=== PATIENT | male | born 1940 | race Caucasian/White ===

== ENCOUNTER 2018-01-29 17:52 | Inpatient (IN) ==
--- NOTE | 2018-01-29 18:26 | Emergency Department Note ---
Disposition Clinical Impression: Weakness, Fecal impaction in rectum Pneumonia Qualifiers: Pneumonia type: due to unspecified organism Laterality: unspecified laterality Lung location: unspecified part of lung Qualified Code(s): J18.9 - Pneumonia, unspecified organism Disposition: Admitted As Inpatient Condition: Good General Adult HPI - General Chief complaint: ED Abdominal Pain Stated complaint: Lathargic Time Seen by Provider: 01/29/18 18:17 Source: patient, EMS Nursing Notes Reviewed: Yes Vital Signs Reviewed: Yes - History of Present Illness HPI Narrative: 77-year-old male presents to the emergency department from nursing facility with concerns for feeling lethargic. Patient states that he is been more tired lately. Reports that he had some cough and sputum production. Also reports some abdominal pain. Patient has abdominal pain is mild in nature and right- sided. Describes it as achy pain. Denies any nausea, vomiting, dysuria, urinary frequency, urgency. Patient denies any fevers, chills, chest pain, pressure, tightness. Pain Scale: 0 - Related Data Home Medications Medication Instructions Recorded Confirmed Albuterol Sulfate [Ventolin Hfa] 2 puff IH Q6H PRN 01/29/18 01/29/18 Amlodipine Besylate 5 mg PO QAM 01/29/18 01/29/18 Aspirin [Lo-Dose Aspirin EC] 81 mg PO DAILY 01/29/18 01/29/18 Fluticasone/Vilanterol [Breo 2 puff IH QAM 01/29/18 01/29/18 Ellipta 200-25 Mcg INH] Furosemide [Lasix] 20 mg PO QAM 01/29/18 01/29/18 Insulin Glargine [Lantus] 3 unit SQ HS 01/29/18 01/29/18 Ipratropium/Albuterol Sulfate 3 ml IH Q4H 01/29/18 01/29/18 [Iprat-Albut 0.5-3(2.5) mg/3 ml] Metoprolol [Lopressor] 25 mg PO BID 01/29/18 01/29/18 Mycophenolate Mofetil [Cellcept] 500 mg PO BID 01/29/18 01/29/18 Oxybutynin Chloride [Ditropan Xl] 10 mg PO QAM 01/29/18 01/29/18 Pravastatin Sodium [Pravachol] 40 mg PO DAILY 01/29/18 01/29/18 Ranitidine HCl [Acid Paint Prep Technician] 150 mg PO BID 01/29/18 01/29/18 Tramadol HCl [Ultram] 50 mg PO Q12H PRN 01/29/18 01/29/18 Allergies Allergy/AdvReac Type Severity Reaction Status Date / Time guaifenesin [From Mucinex] Allergy Confusion Verified 08/27/15 14:05 All systems ED: reviewed and negative except as stated. Review of Systems: As Per HPI Constitutional: Denies: fever Cardiovascular: Denies: chest pain Respiratory: Reports: cough, sputum production Gastrointestinal: Reports: abdominal pain. Denies: nausea, vomiting Genitourinary: Denies: urgency, dysuria, frequency Musculoskeletal: Denies: back pain Integumentary: Denies: rash Neurological: Denies: headache Past Medical History - Past Medical History Medical history: Reports: arthritis, cancer, COPD, diabetes, GERD, hypertension, peripheral artery disease, renal disease Psychiatric history: Reports: anxiety, depression - Social History Smoking Status: Former smoker Smokeless Tobacco Status: No Alcohol use: Reports: none Drug use: Reports: none Physical Exam - General General appearance: alert, in no apparent distress - Head Head exam: normocephalic - Eye Eye exam: Present: EOMI - ENT ENT exam: mucous membranes moist - Neck Neck exam: Present: trachea midline - Chest Chest inspection: Present: symmetric chest wall rise - Respiratory Respiratory exam: Present: normal lung sounds bilaterally. Absent: respiratory distress, accessory muscle use - Cardiovascular Cardiovascular exam: Present: regular rate, normal rhythm, normal heart sounds - Abdominal Exam Abdominal exam: Present: soft, tenderness. Absent: distention, guarding, rebound, rigidity Abdominal tenderness: Present: RUQ, RLQ, mild - Rectal Exam Editor Continuity And Script present during exam: Yes Rectal exam: Present: normal inspection, heme (-) stool, other (Patient had release of moderate quantity of stool upon disimpaction.). Absent: black stool, bloody stool, hemorrhoids, mass - Extremities Exam Extremities exam: Present: full ROM, normal capillary refill - Back Exam Back exam: Present: full ROM - Neurological Exam Neurological exam: Present: alert, oriented X3 - Psychiatric Psychiatric exam: Present: normal affect, normal mood - Skin Skin exam: Present: warm, dry, intact, normal color. Absent: rash Course Vital Signs Temperature 99.4 F 01/29/18 17:55 Pulse Rate 82 01/29/18 17:55 Respiratory Rate 20 01/29/18 17:55 Blood Pressure 123/75 01/29/18 17:55 O2 Sat by Pulse Oximetry 100 01/29/18 17:55 Temperature 98.0 F 01/30/18 06:37 Pulse Rate 78 01/30/18 06:37 Respiratory Rate 20 01/30/18 06:37 Blood Pressure 142/71 01/30/18 06:37 O2 Sat by Pulse Oximetry 97 01/30/18 06:37 Oxygen Delivery Oxygen Delivery Nasal Cannula Medical Decision Making - MDM Narrative Medical decision making narrative: 69-year-old male presents emergency Department concern for weakness, feeling well, cough, sputum production, right-sided abdominal pain. Patient was stable not in acute distress. Patient's white count was not elevated. He was afeb rile. Hemoglobin was 8.6. He does have history of anemia, we did obtain a Hemoccult which was heme negative. CT scanning of the abdomen and pelvis revealed concern for rectal fecal impaction. On rectal exam, stool was released from the rectal vault upon disimpaction. It was not melenic or red. Hemoccult was negative. Patient has hemoglobin of 8.6, was 9.4 two years ago. There was concern for increasing size of an abdominal aortic aneurysm. Also to note, there was concern for Maxim obstruction as there is hypertrophy of the bladder wall. We did place a Dickson catheter to help relieve the patient. It was 3.8 cm, and is now 4.3 cm after 4 years. I spoke with Dr. Herrera, who stated that this can be followed up on an outpatient basis and that he did not need to be consulted on the floor for. We are also obtain a head CT. Did not reveal any evidence of intracranial abnormality. Chest CT revealed loculated right pleural disease as well as left lower lobe airspace disease. Patient was given vancomycin, Zosyn, Levaquin for pneumonia has had these chest CT findings as well as cough and sputum production. Admitted to the hospitalist for health care associated pneumonia. Patient hemodynamically stable not in acute distress. Chest X-Ray 01/29/18 18:24 IMPRESSION: Volume loss and increased opacity within the right lower hemithorax. Again, that represents some combination of atelectasis, airspace disease, and pleural fluid. Consider further evaluation with chest CT. D/ / Jimbo Fry MD / Jimbo Fry MD Interpreting Provider: Jimbo Fry MD Abdomen/Pelvis CT 01/29/18 18:25 IMPRESSION: Rectal fecal impaction. Cholelithiasis with multiple small calcified gallstones. Left greater than right bilateral hydronephrosis and hydroureter with no evidence of an obstructing renal calculus. The wall of the urinary bladder appears mildly irregularly thickened. Findings suggest outlet obstruction with hypertrophy of the bladder wall. Correlation with cystoscopy would be helpful. Right basilar parenchymal disease with volume loss. Right pleural disease appears loculated. Left lower lobe airspace disease may represent pneumonia and/or atelectasis. Small left pleural effusion. Calcific coronary artery disease. RECOMMENDATIONS: 4.3 cm AAA Recommend vascular consultation and annual follow-up. Reference: J Vasc Surg 2009 Nov;50(4 Suppl):S2-49. D/ / Louie Reynolds MD / Louie Reynolds MD Interpreting Provider: Louie Reynolds MD Head CT 01/29/18 18:25 IMPRESSION: No acute intracranial abnormality. Generalized atrophy and [id number] chronic small vessel ischemic white matter disease. D/ / Louie Reynolds MD / Louie Reynolds MD Interpreting Provider: Louie Reynolds MD Chest CT 01/29/18 19:33 IMPRESSION: 1. Small bilateral pleural effusion and partial atelectasis of the lower lungs. 2. Nonspecific mildly enlarged lymph nodes in the anterior mediastinum. 3. Ascending thoracic aorta is mildly aneurysmal and measures 4.5 cm in diameter. 4. Pulmonary emphysema D/ / Quintin Meanrd MD / Quintin Menard MD Interpreting Provider: Quintin Menard MD - Lab Data Result diagrams: 01/29/18 18:36 01/29/18 18:36 Lab Results 01/29/18 01/29/18 01/29/18 Range/Units 18:36 18:36 18:36 WBC 8.3 (4.3-11.1) K/mcL RBC 3.05 L (4.19-5.50) M/mcL Hgb 8.6 L (12.9-16.9) g/dL Hct 28.3 L (37.5-50.1) % MCV 92.8 (83.0-100.0) fL MCH 28.2 (28.0-33.3) pg MCHC 30.4 L (31.6-35.5) g/dL RDW 14.9 H (11.5-14.5) % Plt Count 424 H (140-400) K/mcL MPV 9.3 L (9.4-12.4) fL Immature Gran % 0.8 (0-4) % Seg Neutrophils % 63.9 % Lymphocytes % 14.8 % Monocytes % 9.9 % Eosinophils % 9.8 % Basophils % 0.8 % Neutrophils # 5.3 (1.6-8.9) K/mcL Lymphocytes # 1.2 (0.6-4.6) K/mcL Monocytes # 0.8 (0.0-1.3) K/mcL Eosinophils # 0.8 H (0.0-0.6) K/mcL Basophils # 0.1 (0.0-0.2) K/mcL Sodium 137 (136-145) mEq/L Potassium 4.4 (3.5-5.1) mEq/L Chloride 101 (98-107) mEq/L Carbon Dioxide 28 (23-29) mEq/L BUN 41 H (8-23) mg/dL Creatinine 1.37 H (0.70-1.30) mg/dL Est GFR ( Amer) > 60 (> 60) Est GFR (Non-Af Amer) 50 L (> 60) BUN/Creatinine Ratio 30 H (6-26) Glucose 108 H (70-105) mg/dL Calculated Osmolality 295 (280-300) Calcium 8.8 (8.6-10.3) mg/dL Troponin I (< 0.04) ng/mL B-Natriuretic Peptide 309 H (Less than 100) pg/mL TSH (0.340-5.600) mcIU/mL Urine Color (Yellow) Urine Clarity (Clear) Urine pH (5.0-8.0) pH Units Ur Specific Ellsworth (1.010-1.025) Urine Protein (Neg-Trace) mg/dL Urine Glucose (UA) (Normal) mg/dL Urine Ketones (Negative) mg/dL Urine Blood (Negative) Urine Nitrite (Negative) Urine Bilirubin (Negative) Urine Urobilinogen (Normal) mg/dL Ur Leukocyte Esterase (Negative) Urine Microscopic RBC (0-3) per hpf Urine Microscopic WBC (0-3) per hpf Ur Squamous Epith Cells (None-Few) per lpf Urine Bacteria (None-Few) per hpf Hyaline Casts (None-Few) per lpf Ur Culture Indicated? (NO) Stool Occult Bld Scrn (Negative) 01/29/18 01/29/18 01/29/18 Range/Units 18:36 20:18 21:13 WBC (4.3-11.1) K/mcL RBC (4.19-5.50) M/mcL Hgb (12.9-16.9) g/dL Hct (37.5-50.1) % MCV (83.0-100.0) fL MCH (28.0-33.3) pg MCHC (31.6-35.5) g/dL RDW (11.5-14.5) % Plt Count (140-400) K/mcL MPV (9.4-12.4) fL Immature Gran % (0-4) % Seg Neutrophils % % Lymphocytes % % Monocytes % % Eosinophils % % Basophils % % Neutrophils # (1.6-8.9) K/mcL Lymphocytes # (0.6-4.6) K/mcL Monocytes # (0.0-1.3) K/mcL Eosinophils # (0.0-0.6) K/mcL Basophils # (0.0-0.2) K/mcL Sodium (136-145) mEq/L Potassium (3.5-5.1) mEq/L Chloride (98-107) mEq/L Carbon Dioxide (23-29) mEq/L BUN (8-23) mg/dL Creatinine (0.70-1.30) mg/dL Est GFR ( Amer) (> 60) Est GFR (Non-Af Amer) (> 60) BUN/Creatinine Ratio (6-26) Glucose (70-105) mg/dL Calculated Osmolality (280-300) Calcium (8.6-10.3) mg/dL Troponin I < 0.03 (< 0.04) ng/mL B-Natriuretic Peptide (Less than 100) pg/mL TSH 5.263 (0.340-5.600) mcIU/mL Urine Color Yellow (Yellow) Urine Clarity Turbid A (Clear) Urine pH 5.0 (5.0-8.0) pH Units Ur Specific Ellsworth 1.015 (1.010-1.025) Urine Protein 100 H (Neg-Trace) mg/dL Urine Glucose (UA) Normal (Normal) mg/dL Urine Ketones Negative (Negative) mg/dL Urine Blood Trace H (Negative) Urine Nitrite Negative (Negative) Urine Bilirubin Negative (Negative) Urine Urobilinogen Normal (Normal) mg/dL Ur Leukocyte Esterase Negative (Negative) Urine Microscopic RBC 3-5 H (0-3) per hpf Urine Microscopic WBC 0-3 (0-3) per hpf Ur Squamous Epith Cells Many H (None-Few) per lpf Urine Bacteria None Seen (None-Few) per hpf Hyaline Casts Few (None-Few) per lpf Ur Culture Indicated? NO (NO) Stool Occult Bld Scrn Negative (Negative) - EKG Data EKG #1 EKG attestation: Yes I reviewed and interpreted this EKG. EKG results narrative: 18:35 Heart rate 76 bpm, VT 165 ms, QRS duration 107 ms, QT 400 ms, Sinus rhythm with ventricular rate of 76 beats for minute. No ischemic ST changes on this EKG. Attestation Statement - Attestation Attestation: I, Mor Antonio, examined this patient and my medical decision-making was reviewed with the DOWELER/PA/Advanced Practice Nurse/Resident Physician. I agree with the documented findings, disposition and treatment plan as described except to the extent set forth below. 77-year-old male presents emergency Department with concerns of confusion, lethargy. He had complained of abdominal pain as well emergency department. Patient also complains of having cough productive of yellow sputum which is been getting worse over the past couple days. He denies vomiting, recent trauma, changes in his medications. CT of his chest shows possible pneumonia. CT of his abdomen shows AAA of 4.3 cm which is larger than his previous aortic aneurysm. Resident spoke with the vascular surgeon, Sharon, who is aware of the patient's case and presentation. Patient had a bowel movement in the emergency department. Patient will be admitted to hospitalist for further care and evaluation.
[2018-01-29 19:02] LABS: Basophils # 0.1 K/mcL (0.0-0.2); Basophils % 0.8 %; Eosinophils # 0.8 K/mcL (0.0-0.6); Eosinophils % 9.8 %; Hematocrit 28.3 % (37.5-50.1); Hemoglobin 8.6 g/dL (12.9-16.9); Immature Granulocytes % 0.8 % (0-4); Lymphocytes # 1.2 K/mcL (0.6-4.6); Lymphocytes % 14.8 %; Mean Corpuscular HGB Conc 30.4 g/dL (31.6-35.5); Mean Corpuscular Hemoglobin 28.2 pg (28.0-33.3); Mean Corpuscular Volume 92.8 fL (83.0-100.0); Mean Platelet Volume 9.3 fL (9.4-12.4); Monocytes # 0.8 K/mcL (0.0-1.3); Monocytes % 9.9 %; Neutrophils # 5.3 K/mcL (1.6-8.9); Platelet Count 424 K/mcL (140-400); Red Blood Count 3.05 M/mcL (4.19-5.50); Red Cell Distribution Width 14.9 % (11.5-14.5); Segmented Neutrophils % 63.9 %
[2018-01-29 19:21] LABS: Troponin I < 0.03 ng/mL (< 0.04)
[2018-01-29 19:22] LABS: BUN/Creatinine Ratio 30 (6-26); Blood Urea Nitrogen 41 mg/dL (8-23); Calcium 8.8 mg/dL (8.6-10.3); Carbon Dioxide 28 mEq/L (23-29); Chloride 101 mEq/L (98-107); Glucose 108 mg/dL (70-105); Osmolality,Calculated 295 (280-300); Potassium 4.4 mEq/L (3.5-5.1); Sodium 137 mEq/L (136-145); eGFR For Non-African Americans 50 (> 60)
[2018-01-29 19:35] LABS: Thyroid Stimulating Hormone 5.263 mcIU/mL (0.340-5.600)
[2018-01-29 20:33] LABS: Bilirubin,Urine Negative (Negative); Blood,Urine Trace (Negative); Clarity,Urine Turbid (Clear); Color,Urine Yellow (Yellow); Glucose,Urine (UA) Normal (Normal); Ketones,Urine Negative (Negative); Leukocyte Esterase,Urine Negative (Negative); Nitrite,Urine Negative (Negative); Protein,Urine 100 mg/dL (Neg-Trace); Specific Gravity,Urine 1.015 (1.010-1.025); Urobilinogen,Urine Normal (Normal)
[2018-01-29 20:37] LABS: Bacteria,Urine None Seen per hpf (None-Few); Hyaline Casts,Urine Few per lpf (None-Few); Squamous Epithelial Cell,Urine Many per lpf (None-Few); WBC,Urine 0-3 per hpf (0-3)
[2018-01-29] MEDS ORDERED: Piperacillin/Tazobactam 3.375 GM in Water for inj. (sterile) 20 ML 20 ML IVP ONE (21:53)
[2018-01-29] MEDS ORDERED: Azithromycin 500 MG in D5% in Water 250 ML IVPB STA (22:17)
[2018-01-30] MEDS ORDERED: Ipratropium/Albuterol Neb 3 ML ONE (00:30)
[2018-01-30] MEDS: Ipratropium/Albuterol Neb 3 ML IH PRN ×4 (00:38→19:51)
[2018-01-30] MEDS ORDERED: Acetaminophen 325 MG TABLET PO PRN (09:30)
[2018-01-30] MEDS ORDERED: Naloxone 0.4 MG/ML INJ IVP PRN (09:30)
[2018-01-30] MEDS ORDERED: Dextrose Gel 15 GM/37.5 ML TUBE PO PRN ×2 (09:37)
[2018-01-30] MEDS ORDERED: *HR* Dextrose 50 % in Water (Syg) 50 ML SYRINGE IVP PRN (09:37)
[2018-01-30] MEDS ORDERED: D5% in Water 1,000 ML IVC PRN (09:37)
--- NOTE | 2018-01-30 09:53 | Internal Med History&Physical ---
Date of Encounter: 01/30/18 Time of Encounter: 08:00 Internal Medicine - H&P: HPI Chief complaint: Abdominal pain Admitted From: Home Plans for Post Hospital Care: Home History of present illness: Mr. Munoz is a 77 year old male presented to ER for abdominal pain. Past medical history is significant for diabetes, hypertension, lung cancer S/P right lobectomy, S/P appendectomy and partial bowel resection. Patient complaint the pain located on right upper quadrant and right lower quadrant started from yesterday. Patient denies fever, chills, nausea, vomiting. Patient can pass gas and had bowel movement yesterday evening. Patient also complaining chronic cough for about to 2 weeks with whitish to yellowish sputum. Patient denies shortness of breath, chest pain, runny nose, or sore throat. In the emergency room, CT abdominal has been done, no acute finding, but suspect pneumonia. Patient has recent pneumonia 3 weeks ago, for which he was treated in [facility]. Patient denies worsening cough or shortness of breath. Patient has bilateral lower extremity skin redness, warmth, tenderness for several weeks. Past Med Surg Social Fam HX - Past Medical History Medical history: arthritis, cancer, COPD, diabetes, GERD, hypertension, peripheral artery disease, renal disease Additional medical history: Iron Defficeincy Anemia. Hx Lung CA. Restless Leg Syndrome Psychiatric history: anxiety, depression - Past Surgical History Additional surgical history: Right lobectomy - Social History Smoking Status: Former smoker Smokeless Tobacco Status: No Alcohol use: none Drug use: none - Family History Mother History Unknown: Yes Internal Medicine - H&P: Meds Albuterol Sulfate [Ventolin Hfa] 2 puff IH Q6H PRN 01/29/18 [History] Amlodipine Besylate 5 mg PO QAM 01/29/18 [History] Aspirin [Lo-Dose Aspirin EC] 81 mg PO DAILY 01/29/18 [History] Fluticasone/Vilanterol [Breo Ellipta 200-25 Mcg INH] 2 puff IH QAM 01/29/18 [History] Furosemide [Lasix] 20 mg PO QAM 01/29/18 [History] Insulin Glargine [Lantus] 3 unit SQ HS 01/29/18 [History] Ipratropium/Albuterol Sulfate [Iprat-Albut 0.5-3(2.5) mg/3 ml] 3 ml IH Q4H 01/29/18 [History] Metoprolol [Lopressor] 25 mg PO BID 01/29/18 [History] Mycophenolate Mofetil [Cellcept] 500 mg PO BID 01/29/18 [History] Oxybutynin Chloride [Ditropan Xl] 10 mg PO QAM 01/29/18 [History] Pravastatin Sodium [Pravachol] 40 mg PO DAILY 01/29/18 [History] Ranitidine HCl [Acid Mud Jack Nozzleman] 150 mg PO BID 01/29/18 [History] Tramadol HCl [Ultram] 50 mg PO Q12H PRN 01/29/18 [History] Allergy/AdvReac Type Severity Reaction Status Date / Time guaifenesin [From Mucinex] Allergy Confusion Verified 08/27/15 14:05 All Systems PM: A 10-system review of systems was performed and is negative for pertinent findings except as documented above in the HPI. - Constitutional Vitals: Temp Pulse Resp BP Pulse Ox 98.0 F 78 20 142/71 97 01/30/18 06:37 01/30/18 06:37 01/30/18 06:37 01/30/18 06:37 01/30/18 06:37 Exam: Pt is AAO x 3, in NAD HEENT: NC/AT, PERRL Neck: Supple, no JVD, no LAD Lungs: CTA b/l, breath sound low on right side Heart: S1S2, RRR Abd: Soft, tenderness with guarding on right upper quadrant, BS present Ext: ROM wnl, no pedal edema, bilateral lower extremity skin redness/warmth/tenderness up to knees Neuro: No focal deficit Internal Med - H&P Results - Labs CBC & Chem 7: 01/29/18 18:36 01/29/18 18:36 Labs: Short CBC 01/29/18 Range/Units 18:36 WBC 8.3 (4.3-11.1) K/mcL Hgb 8.6 L (12.9-16.9) g/dL Hct 28.3 L (37.5-50.1) % Plt Count 424 H (140-400) K/mcL Neutrophils # 5.3 (1.6-8.9) K/mcL BMP 01/29/18 18:36 Sodium 137 Potassium 4.4 Chloride 101 Carbon Dioxide 28 BUN 41 H Creatinine 1.37 H Glucose 108 H Calcium 8.8 Cardiac Enzymes 01/29/18 Range/Units 18:36 Troponin I < 0.03 (< 0.04) ng/mL Urine 01/29/18 Range/Units 20:18 Urine Color Yellow (Yellow) Urine Clarity Turbid A (Clear) Urine pH 5.0 (5.0-8.0) pH Units Ur Specific Painter 1.015 (1.010-1.025) Urine Protein 100 H (Neg-Trace) mg/dL Urine Glucose (UA) Normal (Normal) mg/dL - Impressions ITS Impressions Chest X-Ray 01/29/18 18:24 IMPRESSION: Volume loss and increased opacity within the right lower hemithorax. Again, that represents some combination of atelectasis, airspace disease, and pleural fluid. Consider further evaluation with chest CT. D/ / Jimbo Fry MD / Jimbo Fry MD Interpreting Provider: Jimbo Fry MD Abdomen/Pelvis CT 01/29/18 18:25 IMPRESSION: Rectal fecal impaction. Cholelithiasis with multiple small calcified gallstones. Left greater than right bilateral hydronephrosis and hydroureter with no evidence of an obstructing renal calculus. The wall of the urinary bladder appears mildly irregularly thickened. Findings suggest outlet obstruction with hypertrophy of the bladder wall. Correlation with cystoscopy would be helpful. Right basilar parenchymal disease with volume loss. Right pleural disease appears loculated. Left lower lobe airspace disease may represent pneumonia and/or atelectasis. Small left pleural effusion. Calcific coronary artery disease. RECOMMENDATIONS: 4.3 cm AAA Recommend vascular consultation and annual follow-up. Reference: J Vasc Surg 2009 Nov;50(4 Suppl):S2-49. D/ / Louie Reynolds MD / Louie Reynolds MD Interpreting Provider: Louie Reynolds MD Head CT 01/29/18 18:25 IMPRESSION: No acute intracranial abnormality. Generalized atrophy and [id number] chronic small vessel ischemic white matter disease. D/ / Louie Reynolds MD / Louie Reynolds MD Interpreting Provider: Louie Reynolds MD Chest CT 01/29/18 19:33 IMPRESSION: 1. Small bilateral pleural effusion and partial atelectasis of the lower lungs. 2. Nonspecific mildly enlarged lymph nodes in the anterior mediastinum. 3. Ascending thoracic aorta is mildly aneurysmal and measures 4.5 cm in diameter. 4. Pulmonary emphysema D/ / Quintin Menard MD / Quintin Menard MD Interpreting Provider: Quintin Menard MD - Assessment and plan (1) Cellulitis Current Visit: Yes Status: Acute Assessment and plan: Bilateral lower extremity skin redness, warmth, tenderness. Consider cellulitis. - Continue vancomycin and zosyn for cellulitis. Follow-up of blood culture, may consider switch to by mouth antibiotics upon discharge Qualifiers: Site of cellulitis: extremity Site of cellulitis of extremity: lower extremity Laterality: unspecified laterality Qualified Code(s): L03.119 - Cellulitis of unspecified part of limb (2) Right upper quadrant pain Current Visit: Yes Status: Acute Assessment and plan: Etiology is undetermined. CT abdominal shows cholelithiasis. - We will check liver function, lipase - We will order US abdomen limit to further evaluate liver and biliary system - Place patient on clear liquid diet - Patient is on Zosyn now to cover possible cholecystitis (need to r/o by US) - Pain medication as needed (3) Hypertension Current Visit: Yes Status: Acute Assessment and plan: Continue home medications Qualifiers: Hypertension type: essential hypertension Qualified Code(s): I10 - Essential (primary) hypertension (4) Diabetes mellitus Current Visit: Yes Status: Acute Assessment and plan: Cover Patient with sliding scale insulin. 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 abdomen shows bilateral nonobstructive hydroureterosis and hydronephrosis. - Dickson catheter placed - Strict I and O, give low rate IV fluid. - Avoid the nephrotoxic medications. - Consider urology consult for hydronephrosis (6) DVT prophylaxis Current Visit: Yes Status: Acute Assessment and plan: Heparin subcutaneously (7) Pneumonia Current Visit: Yes Status: Acute Assessment and plan: CT abdomen and the chest x-ray shows possible pneumonia. Patient was recently admitted to hospital for pneumonia. - Residual infiltrate of previous pneumonia vs new healthcare associated pneumonia. - Continue Vanco and Zosyn at this point, de-escalation based on culture results - Blood and sputum culture Qualifiers: Pneumonia type: due to unspecified organism Laterality: bilateral Lung location: lower lobe of lung Qualified Code(s): J18.1 - Lobar pneumonia, unspecified organism (8) Weakness Current Visit: Yes Status: Acute Assessment and plan: Patient has generalized weakness. Will consult PT OT for evaluation (9) Abdominal aortic aneurysm Current Visit: Yes Status: Acute Assessment and plan: CT abdomen shows AAA, Enlarged size. Vascular surgery consult the by ER doctor Qualifiers: Presence of rupture: without rupture Qualified Code(s): I71.4 - Abdominal aortic aneurysm, without rupture - Time Spent With Patient Total time spent is greater than 50% in coordination of care (as documented) at patient's floor/unit and/or counseling patient: 45 minutes Greater than 35 minutes
[2018-01-30] MEDS: amLODIPine 5 MG TABLET PO SCH (10:46)
[2018-01-30] MEDS: *HR* HYDROcodone/Acet 5/325 mg TABLET PO PRN ×2 (10:47→19:36)
[2018-01-30] MEDS: 0.9 % Sodium Chloride 1,000 ML IVC SCH (10:49)
[2018-01-30] MEDS: Piperacillin/Tazobactam 3.375 GM in 0.9 % Sodium Chloride Mini Bag 100 ML IVPB SCH ×2 (10:50→16:13)
[2018-01-30 11:03] LABS: Albumin 3.1 g/dL (3.5-5.7); Albumin/Globulin Ratio 0.9 (1.1-2.2); Bilirubin,Direct 0.1 mg/dL (0.0-0.2); Bilirubin,Indirect 0.2 mg/dL (0.0-1.2); Bilirubin,Total 0.3 mg/dL (0.3-1.0); Globulin 3.6 g/dL (2.4-3.5); Total Protein 6.7 g/dL (6.4-8.9)
[2018-01-30] MEDS: Insulin LISPRO 300 UNITS/3 ML VIAL SQ SCH ×3 (11:07→20:38)
--- NOTE | 2018-01-30 15:24 | Urology - Consult Note ---
Date of Encounter: 01/30/18 Time of Encounter: 15:22 - Assessment and Plan (1) Hydronephrosis Current Visit: Yes Assessment and plan: Left greater than right on CT. Mild decrease in renal functions Unclear if acute or chronic. Bladder thickened but does not appear overly distended. Dickson catheter was placed earlier today. Plan: Monitor renal functions with Dickson catheter in place. Renal ultrasound on Thursday to evaluate effective Dickson catheter and bilateral hydronephrosis. If patient continues with hydronephrosis on repeat ultrasound, will require cystoscopy, retrograde ureterography, diagnostic ureteroscopy. If hydronephrosis resolves and renal function normalizes with placement of Dickson catheter, will start combination BPH meds and follow-up as outpatient for further evaluation and management including cystoscopy. Qualifiers: Qualified Code(s): N13.30 - Unspecified hydronephrosis (2) Enlarged prostate Current Visit: Yes Status: Acute Assessment and plan: Patient reports baseline voiding difficulties. Thickened bladder suggesting chronic voiding against high pressure bladder outlet obstruction. Plan: Outpatient BPH evaluation (3) Abnormal computed tomography of bladder Current Visit: Yes Status: Acute (4) KATERYNA (acute kidney injury) Current Visit: Yes Status: Acute Assessment and plan: Mild decrease in renal function is present on initial laboratory evaluations. It is unclear whether this is acute or chronic condition. Findings of bilateral hydronephrosis on CT. Plan: Assess response of hydronephrosis and decreased renal function to placement of Dickson catheter (01/30/18) (5) Hematuria Current Visit: Yes Status: Acute Assessment and plan: Patient reports no prior history of hematuria into Dickson catheter placed earlier today. There is a small amount of blood in the Dickson tubing during exam. Suspect hematuria secondary to traumatic Dickson placement. Plan: Inpatient versus outpatient cystoscopy based on response of hydronephrosis to indwelling Dickson catheter. Qualifiers: Hematuria type: gross Qualified Code(s): R31.0 - Gross hematuria Urology CN:HPI Consult date: 01/30/18 Requesting physician: Thomas Dooley History of present illness: Mr. Munoz is a 77 year old male presented to ER for abdominal pain. Past medical history is significant for diabetes, hypertension, lung cancer S/P right lobectomy, S/P appendectomy and partial bowel resection. Patient complaint the pain located on right upper quadrant and right lower quadrant started from yesterday. Patient denies fever, chills, nausea, vomiting. Patient can pass gas and had bowel movement yesterday evening. Patient also complaining chronic cough for about to 2 weeks with whitish to yellowish sputum. Patient denies shortness of breath, chest pain, runny nose, or sore throat. In the emergency room, CT abdominal has been done, no acute finding, but suspect pneumonia. Patient has recent pneumonia 3 weeks ago, for which he was treated in [facility]. Patient denies worsening cough or shortness of breath. Patient has bilateral lower extremity skin redness, warmth, tenderness for several weeks. Asked to consult due to bilateral hydro on CT Past Med Surg Social Fam HX - Past Medical History Medical history: arthritis, cancer, COPD, diabetes, GERD, hypertension, peripheral artery disease, renal disease Additional medical history: Iron Defficeincy Anemia. Hx Lung CA. Restless Leg Syndrome Psychiatric history: anxiety, depression - Past Surgical History Additional surgical history: Right lobectomy - Social History Smoking Status: Former smoker Smokeless Tobacco Status: No Alcohol use: none Drug use: none - Family History Mother History Unknown: Yes Medications and Allergies Albuterol Sulfate [Ventolin Hfa] 2 puff IH Q6H PRN 01/29/18 [History] Amlodipine Besylate 5 mg PO QAM 01/29/18 [History] Aspirin [Lo-Dose Aspirin EC] 81 mg PO DAILY 01/29/18 [History] Fluticasone/Vilanterol [Breo Ellipta 200-25 Mcg INH] 2 puff IH QAM 01/29/18 [History] Furosemide [Lasix] 20 mg PO QAM 01/29/18 [History] Insulin Glargine [Lantus] 3 unit SQ HS 01/29/18 [History] Ipratropium/Albuterol Sulfate [Iprat-Albut 0.5-3(2.5) mg/3 ml] 3 ml IH Q4H 01/29/18 [History] Metoprolol [Lopressor] 25 mg PO BID 01/29/18 [History] Mycophenolate Mofetil [Cellcept] 500 mg PO BID 01/29/18 [History] Oxybutynin Chloride [Ditropan Xl] 10 mg PO QAM 01/29/18 [History] Pravastatin Sodium [Pravachol] 40 mg PO DAILY 01/29/18 [History] Ranitidine HCl [Acid Lean Manager] 150 mg PO BID 01/29/18 [History] Tramadol HCl [Ultram] 50 mg PO Q12H PRN 01/29/18 [History] Allergy/AdvReac Type Severity Reaction Status Date / Time guaifenesin [From Mucinex] Allergy Confusion Verified 08/27/15 14:05 Review of Systems - Constitutional malaise - EENT Nose, mouth and throat: no dizziness, no throat swelling - Cardiovascular no chest pain, no diaphoresis - Respiratory cough - Gastrointestinal no fecal incontinence, no vomiting - Genitourinary difficulty urinating, no hematuria - Musculoskeletal no back pain, no numbness - Integumentary no lesions, no rash - Neurological no confusion, no sensory deficit - Psychiatric no anxiety, no confusion - Hematologic/Lymphatic no easy bleeding, no easy bruising - Allergic/Immunologic no throat swelling, no wheezing Exam Initial Vital Signs Temp Pulse Resp BP Pulse Ox 99.4 F 82 20 123/75 100 01/29/18 17:55 01/29/18 17:55 01/29/18 17:55 01/29/18 17:55 01/29/18 17:55 - General physical appearance Present: no distress, chronically ill - Eyes Present: normal ocular movement - ENT Present: normal nares, normal mucosa - Neck Present: trachea midline - Respiratory Present: normal respiratory effort, other (Cannula in place) - Abdomen Abdomen: Present: soft, non tender - Genitourinary normal penis with no external lesions, other (Helio catheter in place) - Integumentary Present: no rash, no growths - Neurologic Present: normal coordination - Musculoskeletal Present: other (Moves all extremities) Urology Results - Labs 01/29/18 18:36 01/29/18 18:36 Abnormal lab results RBC 3.05 M/mcL (4.19-5.50) L 01/29/18 18:36 Hgb 8.6 g/dL (12.9-16.9) L 01/29/18 18:36 Hct 28.3 % (37.5-50.1) L 01/29/18 18:36 MCHC 30.4 g/dL (31.6-35.5) L 01/29/18 18:36 RDW 14.9 % (11.5-14.5) H 01/29/18 18:36 Plt Count 424 K/mcL (140-400) H 01/29/18 18:36 MPV 9.3 fL (9.4-12.4) L 01/29/18 18:36 Eosinophils # 0.8 K/mcL (0.0-0.6) H 01/29/18 18:36 BUN 41 mg/dL (8-23) H 01/29/18 18:36 Creatinine 1.37 mg/dL (0.70-1.30) H 01/29/18 18:36 Est GFR (Non-Af Amer) 50 (> 60) L 01/29/18 18:36 BUN/Creatinine Ratio 30 (6-26) H 01/29/18 18:36 Glucose 108 mg/dL (70-105) H 01/29/18 18:36 POC Glucose 112 mg/dL (70-99) H 01/30/18 10:54 AST 9 Units/L (13-39) L 01/30/18 10:27 B-Natriuretic Peptide 309 pg/mL (Less than 100) H 01/29/18 18:36 Albumin 3.1 g/dL (3.5-5.7) L 01/30/18 10:27 Globulin 3.6 g/dL (2.4-3.5) H 01/30/18 10:27 Albumin/Globulin Ratio 0.9 (1.1-2.2) L 01/30/18 10:27 Urine Clarity Turbid (Clear) A 01/29/18 20:18 Urine Protein 100 mg/dL (Neg-Trace) H 01/29/18 20:18 Urine Blood Trace (Negative) H 01/29/18 20:18 Urine Microscopic RBC 3-5 per hpf (0-3) H 01/29/18 20:18 Ur Squamous Epith Cells Many per lpf (None-Few) H 01/29/18 20:18 Diabetes panel 01/29/18 01/30/18 Range/Units 18:36 10:27 Sodium 137 (136-145) mEq/L Potassium 4.4 (3.5-5.1) mEq/L Chloride 101 (98-107) mEq/L Carbon Dioxide 28 (23-29) mEq/L BUN 41 H (8-23) mg/dL Creatinine 1.37 H (0.70-1.30) mg/dL Glucose 108 H (70-105) mg/dL Calcium 8.8 (8.6-10.3) mg/dL AST 9 L (13-39) Units/L ALT 9 (7-52) Units/L Alkaline Phosphatase 60 (34-104) Units/L Albumin 3.1 L (3.5-5.7) g/dL Thyroid panel 01/29/18 Range/Units 18:36 TSH 5.263 (0.340-5.600) mcIU/mL Calcium panel 01/29/18 01/30/18 Range/Units 18:36 10:27 Calcium 8.8 (8.6-10.3) mg/dL Albumin 3.1 L (3.5-5.7) g/dL Pituitary panel 01/29/18 01/29/18 Range/Units 18:36 18:36 Sodium 137 (136-145) mEq/L Potassium 4.4 (3.5-5.1) mEq/L Chloride 101 (98-107) mEq/L Carbon Dioxide 28 (23-29) mEq/L BUN 41 H (8-23) mg/dL Creatinine 1.37 H (0.70-1.30) mg/dL Glucose 108 H (70-105) mg/dL Calcium 8.8 (8.6-10.3) mg/dL TSH 5.263 (0.340-5.600) mcIU/mL Adrenal panel 01/29/18 01/30/18 Range/Units 18:36 10:27 Sodium 137 (136-145) mEq/L Potassium 4.4 (3.5-5.1) mEq/L Chloride 101 (98-107) mEq/L Carbon Dioxide 28 (23-29) mEq/L BUN 41 H (8-23) mg/dL Creatinine 1.37 H (0.70-1.30) mg/dL Glucose 108 H (70-105) mg/dL Calcium 8.8 (8.6-10.3) mg/dL Total Bilirubin 0.3 (0.3-1.0) mg/dL AST 9 L (13-39) Units/L ALT 9 (7-52) Units/L Alkaline Phosphatase 60 (34-104) Units/L Albumin 3.1 L (3.5-5.7) g/dL All other labs normal. - Imaging CT scan - abdomen: image reviewed CT scan - pelvis: image reviewed (CT images reviewed and interpreted independent ly) Consult Discharge Plan - Plan Referrals: NONE,PCP [Primary Care Provider] -
[2018-01-30] MEDS: *HR* Heparin 5,000 UNIT/ML VIAL SQ SCH (17:23)
[2018-01-30] MEDS: Famotidine 20 MG TABLET PO SCH (19:50)
[2018-01-31] MEDS: Piperacillin/Tazobactam 3.375 GM in 0.9 % Sodium Chloride Mini Bag 100 ML IVPB SCH ×4 (00:10→23:18)
[2018-01-31] MEDS: *HR* HYDROcodone/Acet 5/325 mg TABLET PO PRN ×2 (03:06→11:49)
[2018-01-31] MEDS: Ipratropium/Albuterol Neb 3 ML IH PRN ×3 (05:12→15:20)
[2018-01-31 05:57] LABS: Basophils # 0.1 K/mcL (0.0-0.2); Eosinophils # 0.8 K/mcL (0.0-0.6); Eosinophils % 10.7 %; Hematocrit 29.4 % (37.5-50.1); Hemoglobin 8.6 g/dL (12.9-16.9); Immature Granulocytes % 0.8 % (0-4); Lymphocytes # 1.2 K/mcL (0.6-4.6); Lymphocytes % 14.8 %; Mean Corpuscular HGB Conc 29.3 g/dL (31.6-35.5); Mean Corpuscular Hemoglobin 27.2 pg (28.0-33.3); Mean Platelet Volume 9.6 fL (9.4-12.4); Monocytes # 0.8 K/mcL (0.0-1.3); Monocytes % 10.5 %; Neutrophils # 4.9 K/mcL (1.6-8.9); Platelet Count 429 K/mcL (140-400); Red Blood Count 3.16 M/mcL (4.19-5.50); Red Cell Distribution Width 15.2 % (11.5-14.5); Segmented Neutrophils % 62.2 %
[2018-01-31] MEDS: *HR* Heparin 5,000 UNIT/ML VIAL SQ SCH ×2 (06:09→17:29)
[2018-01-31 06:20] LABS: % Iron Saturation 26 % (20-55); BUN/Creatinine Ratio 26 (6-26); Blood Urea Nitrogen 34 mg/dL (8-23); Calcium 8.3 mg/dL (8.6-10.3); Carbon Dioxide 24 mEq/L (23-29); Chloride 104 mEq/L (98-107); Glucose 98 mg/dL (70-105); Iron 60 mcg/dL (65-175); Magnesium 1.9 mg/dL (1.6-2.6); Osmolality,Calculated 292 (280-300); Potassium 4.3 mEq/L (3.5-5.1); Sodium 137 mEq/L (136-145); Transferrin 162 mg/dL (203-362); eGFR For Non-African Americans 53 (> 60)
[2018-01-31 06:35] LABS: Ferritin 181 ng/mL (20-250)
[2018-01-31 06:41] LABS: Folate 15.4 ng/mL (3.0-16.0)
[2018-01-31] MEDS: Insulin LISPRO 300 UNITS/3 ML VIAL SQ SCH ×4 (07:30→20:58)
[2018-01-31] MEDS: 0.9 % Sodium Chloride 1,000 ML IVC SCH (08:02)
[2018-01-31] MEDS: Furosemide 20 MG TABLET PO SCH (08:04)
[2018-01-31] MEDS: Aspirin Enteric Coated 81 MG Tablet PO SCH (08:04)
[2018-01-31] MEDS: Famotidine 20 MG TABLET PO SCH ×2 (08:05→19:56)
[2018-01-31] MEDS: (Fluticasone/Vilanterol [Breo Ellipta 200-25 Mcg Inh] IH SCH (08:05)
[2018-01-31] MEDS: amLODIPine 5 MG TABLET PO SCH (08:05)
[2018-01-31] MEDS ORDERED: amLODIPine 5 MG TABLET PO SCH (09:00)
--- NOTE | 2018-01-31 11:00 | Urology Progress Note ---
Date of Encounter: 01/31/18 Time of Encounter: 10:57 - Assessment and Plan (1) Hydronephrosis Current Visit: Yes Assessment and plan: Unclear etiology. Plan was to see effect of indwelling connors on hematuria, but connors problems with clotting overnigt resulting in connors removal. repeat US ordered for tomorrow. Qualifiers: Qualified Code(s): N13.30 - Unspecified hydronephrosis (2) Enlarged prostate Current Visit: Yes Status: Acute (3) Abnormal computed tomography of bladder Current Visit: Yes Status: Acute Assessment and plan: inpatient vs outpatient cysto based on findings of repeat US tomorrow. (4) KATERYNA (acute kidney injury) Current Visit: Yes Status: Acute (5) Hematuria Current Visit: Yes Status: Acute Assessment and plan: onset with traumatic connors placement. developed clot retention with additional foleys yesterday. I recommended removal of connors to prevent further hematuria and clot retention. Patient voiding spontaneously. Plan: Check PVR via bladder scan Qualifiers: Hematuria type: gross Qualified Code(s): R31.0 - Gross hematuria Progress Note Subjective: no new complaints Objective Initial Vital Signs Temp Pulse Resp BP Pulse Ox 99.4 F 82 20 123/75 100 01/29/18 17:55 01/29/18 17:55 01/29/18 17:55 01/29/18 17:55 01/29/18 17:55 - General physical appearance Present: no distress - Respiratory Present: normal respiratory effort - Integumentary Present: no growths - Musculoskeletal Present: normal posture - Psychiatric Present: oriented to time, oriented to person - Labs 01/31/18 04:55 01/31/18 04:55 Diabetes panel 01/30/18 01/31/18 Range/Units 10:27 04:55 Sodium 137 (136-145) mEq/L Potassium 4.3 (3.5-5.1) mEq/L Chloride 104 (98-107) mEq/L Carbon Dioxide 24 (23-29) mEq/L BUN 34 H (8-23) mg/dL Creatinine 1.31 H (0.70-1.30) mg/dL Glucose 98 (70-105) mg/dL Calcium 8.3 L (8.6-10.3) mg/dL AST 9 L (13-39) Units/L ALT 9 (7-52) Units/L Alkaline Phosphatase 60 (34-104) Units/L Albumin 3.1 L (3.5-5.7) g/dL Calcium panel 01/30/18 01/31/18 Range/Units 10:27 04:55 Calcium 8.3 L (8.6-10.3) mg/dL Albumin 3.1 L (3.5-5.7) g/dL Pituitary panel 01/31/18 Range/Units 04:55 Sodium 137 (136-145) mEq/L Potassium 4.3 (3.5-5.1) mEq/L Chloride 104 (98-107) mEq/L Carbon Dioxide 24 (23-29) mEq/L BUN 34 H (8-23) mg/dL Creatinine 1.31 H (0.70-1.30) mg/dL Glucose 98 (70-105) mg/dL Calcium 8.3 L (8.6-10.3) mg/dL Adrenal panel 01/30/18 01/31/18 Range/Units 10:27 04:55 Sodium 137 (136-145) mEq/L Potassium 4.3 (3.5-5.1) mEq/L Chloride 104 (98-107) mEq/L Carbon Dioxide 24 (23-29) mEq/L BUN 34 H (8-23) mg/dL Creatinine 1.31 H (0.70-1.30) mg/dL Glucose 98 (70-105) mg/dL Calcium 8.3 L (8.6-10.3) mg/dL Total Bilirubin 0.3 (0.3-1.0) mg/dL AST 9 L (13-39) Units/L ALT 9 (7-52) Units/L Alkaline Phosphatase 60 (34-104) Units/L Albumin 3.1 L (3.5-5.7) g/dL Consult Discharge Plan - Plan Referrals: NONE,PCP [Primary Care Provider] -
[2018-01-31] MEDS: *HR* OxyCODONE Immed Rel 5 MG TABLET PO PRN (19:56)
--- NOTE | 2018-01-31 23:38 | Internal Med Progress Note ---
Hospitalist Progress Note - Encounter Date of Encounter: 01/31/18 Time of Encounter: 19:00 - Subjective Interval History: SUBJECTIVE: The patient feels better. He continues to have mild epigastric pain; without nausea or vomiting. There is no diarrhea. Dickson catheter was inserted yesterday by urology. It had to be removed last night because of bleeding/pain. The patient uses diapers. Denies chest pain. He denies coughing and wheezing. OBJECTIVE: Skin: Free of rash and discoloration. ENMT: Oral/pharyngeal mucosa is normal in appearance. Eyes: Sclera is white. There is no discharge from eyes. Respiratory: Normal breath sounds; no crackles or wheezes. CV: Heart is regular; no gallop or murmur. GI: Abdomen is soft. It is mildly tender in epigastrium. Neuro: There is no focal deficits. ADDITIONAL DATA: CT of abdomen and pelvis done at admission showed bilateral hydronephrosis; without stones. It also showed findings suggesting bladder outlet obstruction with hypertrophy of the bladder wall. Ultrasound of the gallbladder/biliary tree showed cholelithiasis with no evidence for acute cholecystitis. CT of the chest did not show any typical findings for pneumonia. Hemoglobin is 8.6 with normal WBC/platelet count. He has normal electrolytes. Creatinine is 1.31. ASSESSMENT AND PLAN: Bilateral hydronephrosis. Without detectable calculi. Urology is consulted. They ordered an ultrasound of kidneys/bladder tomorrow. The patient does have mild acute kidney injury. His creatinine is 1.31; 1.09 in August 2015. Right upper quadrant abdominal pain/epigastric pain. It could be from a gallbladder disease. Imaging studies are nonconclusive. We may need to do HIDA scan, if he continues to have significant pain in that area. We have basically ruled out pneumonia. He was treated for that recently. See results of CT of chest. I will stop IV vancomycin/IV Zosyn. The patient has had a chronic redness of lower legs; started in 1975. I do not believe, that he requires a treatment with antibiotics. He has no fever. His WBC count is normal. Type 2 diabetes mellitus. Continue diabetic diet and Levemir/Humalog. Hypertension. Control. To continue Lopressor and Norvasc. - Exam Vitals: Temp Pulse Resp BP Pulse Ox 97.6 F 87 17 146/75 100 01/31/18 19:39 12/09/18 19:39 01/31/18 19:39 01/31/18 20:51 01/31/18 19:39 Exam: xx - Assessment and Plan (1) Hydronephrosis Current Visit: Yes Status: Acute (2) KATERYNA (acute kidney injury) Current Visit: Yes Status: Acute (3) Right upper quadrant pain Current Visit: Yes Status: Acute (4) Pneumonia Current Visit: Yes Status: Ruled-out (5) Cellulitis Current Visit: Yes Status: Acute (6) Type 2 diabetes mellitus Current Visit: Yes Status: Chronic (7) Hypertension Current Visit: Yes Status: Acute (8) Abdominal aortic aneurysm Current Visit: Yes Status: Acute - Time Spent with Patient Total time spent is greater than 50% in coordination of care (as documented) at patient's floor/unit and/or counseling patient: 25 - 35 minutes Plan of Care Discussed with: patient Internal Medicine: Result - Labs CBC & Chem 7: 01/31/18 04:55 01/31/18 04:55 Labs: Short CBC 01/31/18 Range/Units 04:55 WBC 7.9 (4.3-11.1) K/mcL Hgb 8.6 L (12.9-16.9) g/dL Hct 29.4 L (37.5-50.1) % Plt Count 429 H (140-400) K/mcL Neutrophils # 4.9 (1.6-8.9) K/mcL BMP 01/31/18 04:55 Sodium 137 Potassium 4.3 Chloride 104 Carbon Dioxide 24 BUN 34 H Creatinine 1.31 H Glucose 98 Calcium 8.3 L Consult Discharge Plan - Plan Referrals: NONE,PCP [Primary Care Provider] - (1) Hydronephrosis Qualifiers: Hydronephrosis type: unspecified Qualified Code(s): N13.30 - Unspecified hydronephrosis (4) Pneumonia Qualifiers: Pneumonia type: due to unspecified organism Laterality: bilateral Lung lo cation: lower lobe of lung Qualified Code(s): J18.1 - Lobar pneumonia, unspecified organism (5) Cellulitis Qualifiers: Site of cellulitis: extremity Site of cellulitis of extremity: lower extremity Laterality: unspecified laterality Qualified Code(s): L03.119 - Cellulitis of unspecified part of limb (6) Type 2 diabetes mellitus Qualifiers: Diabetes mellitus termite renewal inspector insulin use: with jail use Diabetes mellitus complication status: without complication Qualified Code(s): E11.9 - Type 2 diabetes mellitus without complications; Z79.4 - intermediate manager (current) use of insulin (7) Hypertension Qualifiers: Hypertension type: essential hypertension Qualified Code(s): I10 - Essential (primary) hypertension (8) Abdominal aortic aneurysm Qualifiers: Presence of rupture: without rupture Qualified Code(s): I71.4 - Abdominal aortic aneurysm, without rupture
[2018-02-01] MEDS: Ipratropium/Albuterol Neb 3 ML IH PRN ×5 (01:18→20:43)
[2018-02-01] MEDS: 0.9 % Sodium Chloride 1,000 ML IVC SCH ×2 (02:37→08:05)
[2018-02-01] MEDS: *HR* OxyCODONE Immed Rel 5 MG TABLET PO PRN (02:40)
[2018-02-01 05:38] LABS: Basophils # 0.1 K/mcL (0.0-0.2); Eosinophils # 1.2 K/mcL (0.0-0.6); Eosinophils % 13.8 %; Hematocrit 29.2 % (37.5-50.1); Hemoglobin 8.5 g/dL (12.9-16.9); Immature Granulocytes % 0.7 % (0-4); Lymphocytes # 1.3 K/mcL (0.6-4.6); Lymphocytes % 14.2 %; Mean Corpuscular HGB Conc 29.1 g/dL (31.6-35.5); Mean Corpuscular Hemoglobin 27.5 pg (28.0-33.3); Mean Corpuscular Volume 94.5 fL (83.0-100.0); Mean Platelet Volume 9.4 fL (9.4-12.4); Monocytes # 0.9 K/mcL (0.0-1.3); Monocytes % 10.6 %; Neutrophils # 5.3 K/mcL (1.6-8.9); Platelet Count 430 K/mcL (140-400); Red Blood Count 3.09 M/mcL (4.19-5.50); Red Cell Distribution Width 15.1 % (11.5-14.5); Segmented Neutrophils % 59.7 %
[2018-02-01 05:53] LABS: BUN/Creatinine Ratio 24 (6-26); Blood Urea Nitrogen 31 mg/dL (8-23); Calcium 8.4 mg/dL (8.6-10.3); Carbon Dioxide 24 mEq/L (23-29); Chloride 106 mEq/L (98-107); Glucose 82 mg/dL (70-105); Osmolality,Calculated 296 (280-300); Potassium 4.3 mEq/L (3.5-5.1); Sodium 140 mEq/L (136-145); eGFR For Non-African Americans 54 (> 60)
[2018-02-01] MEDS: *HR* Heparin 5,000 UNIT/ML VIAL SQ SCH ×2 (06:01→17:36)
[2018-02-01] MEDS: Insulin LISPRO 300 UNITS/3 ML VIAL SQ SCH ×4 (07:54→22:00)
[2018-02-01] MEDS: Furosemide 20 MG TABLET PO SCH (08:05)
[2018-02-01] MEDS: amLODIPine 5 MG TABLET PO SCH (08:05)
[2018-02-01] MEDS: Famotidine 20 MG TABLET PO SCH ×2 (08:05→22:00)
[2018-02-01] MEDS: Aspirin Enteric Coated 81 MG Tablet PO SCH (08:06)
[2018-02-01] MEDS: (Fluticasone/Vilanterol [Breo Ellipta 200-25 Mcg Inh] IH SCH (08:06)
--- NOTE | 2018-02-01 08:23 | Urology Progress Note ---
Addendum entered and electronically signed by HELENE Enciso 02/01/18 09:45: If hydronephrosis is worsened on ultrasound, will consider cystoscopy, retrograde pyelogram and diagnostic ureteroscopy inpatient. If hydronephrosis improved, will proceed with outpatient cystoscopy. Original Note: <Prabha Norman N - Last Filed: 02/01/18 08:21> Date of Encounter: 02/01/18 Time of Encounter: 08:00 - Assessment and Plan (1) KATERYNA (acute kidney injury) Current Visit: Yes Status: Acute (2) Enlarged prostate Current Visit: Yes Status: Acute (3) Hematuria Current Visit: Yes Status: Acute Assessment and plan: Patient is a 77-year-old male who presents with a history of acute kidney injury, hematuria, bilateral hydronephrosis, greater on the left, and an enlarged prostate. Hematuria is likely traumatic from Dickson. Hemoglobin is stable. Renal function is stabilized. We are awaiting renal ultrasound results pending today. Plan to also proceed with outpatient cystoscopy is recommended. Qualifiers: Hematuria type: gross Qualified Code(s): R31.0 - Gross hematuria (4) Hydronephrosis Current Visit: Yes Status: Acute Qualifiers: Hydronephrosis type: unspecified Qualified Code(s): N13.30 - Unspecified hydronephrosis Progress Note Subjective: no new complaints Narrative: Patient seen and examined lying in bed in no apparent distress. Nurse at bedside. Reviewed I's and O's with nurse. Patient denies difficulty voiding. Patient is experiencing some hematuria, but he denies hesitancy or feeling of incomplete voids. Objective Initial Vital Signs Temp Pulse Resp BP Pulse Ox 99.4 F 82 20 123/75 100 01/29/18 17:55 01/29/18 17:55 01/29/18 17:55 01/29/18 17:55 01/29/18 17:55 - General physical appearance Present: well developed, no distress - Respiratory Present: normal expansion, normal respiratory effort - Integumentary Present: no rash, no abnormal pigmentation - Psychiatric Present: oriented to time, oriented to person, oriented to place, speech is normal, memory intact - Labs 02/01/18 04:41 02/01/18 04:41 Diabetes panel 02/01/18 Range/Units 04:41 Sodium 140 (136-145) mEq/L Potassium 4.3 (3.5-5.1) mEq/L Chloride 106 (98-107) mEq/L Carbon Dioxide 24 (23-29) mEq/L BUN 31 H (8-23) mg/dL Creatinine 1.29 (0.70-1.30) mg/dL Glucose 82 (70-105) mg/dL Calcium 8.4 L (8.6-10.3) mg/dL Calcium panel 02/01/18 Range/Units 04:41 Calcium 8.4 L (8.6-10.3) mg/dL Pituitary panel 02/01/18 Range/Units 04:41 Sodium 140 (136-145) mEq/L Potassium 4.3 (3.5-5.1) mEq/L Chloride 106 (98-107) mEq/L Carbon Dioxide 24 (23-29) mEq/L BUN 31 H (8-23) mg/dL Creatinine 1.29 (0.70-1.30) mg/dL Glucose 82 (70-105) mg/dL Calcium 8.4 L (8.6-10.3) mg/dL Adrenal panel 02/01/18 Range/Units 04:41 Sodium 140 (136-145) mEq/L Potassium 4.3 (3.5-5.1) mEq/L Chloride 106 (98-107) mEq/L Carbon Dioxide 24 (23-29) mEq/L BUN 31 H (8-23) mg/dL Creatinine 1.29 (0.70-1.30) mg/dL Glucose 82 (70-105) mg/dL Calcium 8.4 L (8.6-10.3) mg/dL Consult Discharge Plan - Plan Referrals: NONE,PCP [Primary Care Provider] - <iMchel Wilkes - Last Filed: 02/01/18 17:20> Date of Encounter: 02/01/18 - Assessment and Plan (1) Hydronephrosis Current Visit: Yes Assessment and plan: No improvement noted on today's repeat renal ultrasound. Plan: Consider add on tomorrow's OR schedule for cystoscopy, bilateral retrogrades, bilateral diagnostic ureteroscopy, possible ureteral dilation, possible ureteral biopsy, possible bilateral ureteral stent placement. Qualifiers: Hydronephrosis type: unspecified Qualified Code(s): N13.30 - Unspecified hydronephrosis (2) Enlarged prostate Current Visit: Yes Status: Acute (3) Abnormal computed tomography of bladder Current Visit: Yes Status: Acute (4) KATERYNA (acute kidney injury) Current Visit: Yes Status: Acute (5) Hematuria Current Visit: Yes Status: Acute Assessment and plan: Patient seen and examined independently. I am in agreement with the assessment and plan as outlined by our Urologic Surgery Department Physician Senior Asic Design Engineer, [place]. Qualifiers: Hematuria type: gross Qualified Code(s): R31.0 - Gross hematuria (6) Renal mass Current Visit: Yes Status: Acute Assessment and plan: Finding of 2.2 cm solid right renal mass on follow-up ultrasound. This lesion was not appreciated on noncontrast CT. Plan: Patient will require definitive imaging via renal mass protocol CT for further evaluation and management. This workup can be done on either in or outpatient basis. Objective Initial Vital Signs Temp Pulse Resp BP Pulse Ox 99.4 F 82 20 123/75 100 01/29/18 17:55 01/29/18 17:55 01/29/18 17:55 01/29/18 17:55 01/29/18 17:55 - Labs 02/01/18 04:41 02/01/18 04:41 Diabetes panel 02/01/18 Range/Units 04:41 Sodium 140 (136-145) mEq/L Potassium 4.3 (3.5-5.1) mEq/L Chloride 106 (98-107) mEq/L Carbon Dioxide 24 (23-29) mEq/L BUN 31 H (8-23) mg/dL Creatinine 1.29 (0.70-1.30) mg/dL Glucose 82 (70-105) mg/dL Calcium 8.4 L (8.6-10.3) mg/dL Calcium panel 02/01/18 Range/Units 04:41 Calcium 8.4 L (8.6-10.3) mg/dL Pituitary panel 02/01/18 Range/Units 04:41 Sodium 140 (136-145) mEq/L Potassium 4.3 (3.5-5.1) mEq/L Chloride 106 (98-107) mEq/L Carbon Dioxide 24 (23-29) mEq/L BUN 31 H (8-23) mg/dL Creatinine 1.29 (0.70-1.30) mg/dL Glucose 82 (70-105) mg/dL Calcium 8.4 L (8.6-10.3) mg/dL Adrenal panel 02/01/18 Range/Units 04:41 Sodium 140 (136-145) mEq/L Potassium 4.3 (3.5-5.1) mEq/L Chloride 106 (98-107) mEq/L Carbon Dioxide 24 (23-29) mEq/L BUN 31 H (8-23) mg/dL Creatinine 1.29 (0.70-1.30) mg/dL Glucose 82 (70-105) mg/dL Calcium 8.4 L (8.6-10.3) mg/dL
[2018-02-01] MEDS ORDERED: Aminoglycoside Consult 1 EACH MC ONE (09:21)
[2018-02-01] MEDS: Budesonide/Formoterol 160/4.5 1 PUFF INH IH SCH (20:43)
--- NOTE | 2018-02-01 22:20 | Electrocardiograph Report ---
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
[2018-02-02] MEDS: Ipratropium/Albuterol Neb 3 ML IH PRN ×3 (04:47→21:45)
[2018-02-02] MEDS: *HR* Heparin 5,000 UNIT/ML VIAL SQ SCH ×2 (06:39→19:54)
--- NOTE | 2018-02-02 07:13 | Internal Med Progress Note ---
Hospitalist Progress Note - Encounter Date of Encounter: 02/01/18 Time of Encounter: 19:00 - Subjective Interval History: SUBJECTIVE: The patient continues to have mild epigastric pain. Without nausea or vomiting. Denies diarrhea. He does not seem to have difficulty voiding this time. Denies chest pain. He denies coughing and wheezing. OBJECTIVE: Skin: Free of rash and discoloration. ENMT: Oral/pharyngeal mucosa is normal in appearance. Eyes: Sclera is white. There is no discharge from eyes. Respiratory: Normal breath sounds; no crackles or wheezes. CV: Heart is regular; no gallop or murmur. GI: Abdomen is soft. It is mildly tender in epigastrium. Neuro: There is no focal deficits. ADDITIONAL DATA: CT of abdomen and pelvis done at admission showed bilateral hydronephrosis; without stones. It also showed findings suggesting bladder outlet obstruction with hypertrophy of the bladder wall. Ultrasound of the gallbladder/biliary tree showed cholelithiasis with no evidence for acute cholecystitis. CT of the chest did not show any typical findings for pneumonia. Retroperitoneal ultrasound done today showed severe left-sided and mild right- sided hydronephrosis. CBC from today shows hemoglobin of 8.5 (stable) with a normal WBC/platelet count. ASSESSMENT AND PLAN: Bilateral hydronephrosis. Left more than the right. Without detectable calculi. Urology is consulted. His acute kidney injury is resolving. Right upper quadrant abdominal pain/epigastric pain. It basically subsided. Imaging studies are nonconclusive for significant gallbladder disease. We may need to do HIDA scan, if he continues to have significant pain in that area. We have basically ruled out pneumonia. He was treated for that recently. See results of CT of chest. I will stop IV vancomycin/IV Zosyn. The patient has had a chronic redness of lower legs; started in 1975. I do not believe, that he requires a treatment with antibiotics. He has no fever. His WBC count is normal. Type 2 diabetes mellitus. Continue diabetic diet and Levemir/Humalog. Hypertension. Control. To continue Lopressor and Norvasc. - Exam Vitals: Temp Pulse Resp BP Pulse Ox 98.4 F 76 16 161/66 98 02/02/18 04:37 02/02/18 04:37 02/02/18 04:48 02/02/18 04:37 02/02/18 04:48 Exam: xx - Assessment and Plan (1) Hydronephrosis Current Visit: Yes Status: Acute (2) KATERYNA (acute kidney injury) Current Visit: Yes Status: Acute (3) Right upper quadrant pain Current Visit: Yes Status: Acute (4) Pneumonia Current Visit: Yes Status: Ruled-out (5) Cellulitis Current Visit: Yes Status: Acute (6) Type 2 diabetes mellitus Current Visit: Yes Status: Chronic (7) Hypertension Current Visit: Yes Status: Acute (8) Abdominal aortic aneurysm Current Visit: Yes Status: Acute - Time Spent with Patient Total time spent is greater than 50% in coordination of care (as documented) at patient's floor/unit and/or counseling patient: 25 - 35 minutes Plan of Care Discussed with: patient Internal Medicine: Result - Labs CBC & Chem 7: 02/01/18 04:41 02/01/18 04:41 - Impressions Impressions Retroperitoneum Ultrasound 02/01/18 08:00 IMPRESSION: Severe left-sided hydronephrosis. Mild right-sided hydronephrosis with moderate hydroureter. 2.2 cm solid mildly echogenic nodule of the mid right kidney. Nature is indeterminate. No renal calculus identified. Moderate thickening of the wall of the urinary bladder suggesting bladder outlet obstruction. RECOMMENDATIONS: CT-guided biopsy of the right renal nodule could be performed for histologic diagnosis or six-month follow-up CT study without and with contrast. D/ / Juancarlos Oliver MD / Juancarlos Oliver MD Interpreting Provider: Juancarlos Oliver MD Consult Discharge Plan - Plan Referrals: NONE,PCP [Primary Care Provider] - (1) Hydronephrosis Qualifiers: Hydronephrosis type: unspecified Qualified Code(s): N13.30 - Unspecified hydronephrosis (4) Pneumonia Qualifiers: Pneumonia type: due to unspecified organism Laterality: bilateral Lung location: lower lobe of lung Qualified Code(s): J18.1 - Lobar pneumonia, unspecified organism (5) Cellulitis Qualifiers: Site of cellulitis: extremity Site of cellulitis of extremity: lower extremity Laterality: unspecified laterality Qualified Code(s): L03.119 - Cellulitis of unspecified part of limb (6) Type 2 diabetes mellitus Qualifiers: Diabetes mellitus superintendent container terminal insulin use: with detention use Diabetes mellitus complication status: without complication Qualified Code(s): E11.9 - Type 2 diabetes mellitus without complications; Z79.4 - terminal block assembler (current) use of insulin (7) Hypertension Qualifiers: Hypertension type: essential hypertension Qualified Code(s): I10 - Essential (primary) hypertension (8) Abdominal aortic aneurysm Qualifiers: Presence of rupture: without rupture Qualified Code(s): I71.4 - Abdominal aortic aneurysm, without rupture
[2018-02-02] MEDS: Budesonide/Formoterol 160/4.5 1 PUFF INH IH SCH ×2 (07:55→21:46)
[2018-02-02] MEDS: Insulin LISPRO 300 UNITS/3 ML VIAL SQ SCH ×4 (07:58→21:02)
[2018-02-02] MEDS: (Fluticasone/Vilanterol [Breo Ellipta 200-25 Mcg Inh] IH SCH (08:01)
[2018-02-02] MEDS: amLODIPine 5 MG TABLET PO SCH (08:19)
[2018-02-02] MEDS: Aspirin Enteric Coated 81 MG Tablet PO SCH (08:20)
[2018-02-02] MEDS: Famotidine 20 MG TABLET PO SCH ×2 (08:20→20:51)
[2018-02-02] MEDS: Furosemide 20 MG TABLET PO SCH (08:21)
--- NOTE | 2018-02-02 08:50 | Urology Progress Note ---
<Prabha Norman Pilar - Last Filed: 02/02/18 09:28> Date of Encounter: 02/02/18 Time of Encounter: 08:25 - Assessment and Plan (1) KATERYNA (acute kidney injury) Current Visit: Yes Status: Acute (2) Enlarged prostate Current Visit: Yes Status: Acute (3) Hematuria Current Visit: Yes Status: Acute Qualifiers: Hematuria type: gross Qualified Code(s): R31.0 - Gross hematuria (4) Hydronephrosis Current Visit: Yes Status: Acute Assessment and plan: Patient is a 77-year-old male who presents the history of severe left-sided hydronephrosis and moderate right-sided hydronephrosis. Reviewed renal ultrasound with patient. Discussed recommendations to proceed with surgery in order to fully evaluate for obstruction and directly visualize bladder. Surgical risks and benefits discussed with patient. Patient will remain nothing by mouth. Patient verbalized understanding, consent has been signed, and he is prepared to undergo cystoscopy, bilateral retrogrades, bilateral diagnostic ureteroscopy, possible ureteral dilation, possible ureteral biopsy, possible bilateral ureteral stent placement. Qualifiers: Hydronephrosis type: unspecified Qualified Code(s): N13.30 - Unspecified hydronephrosis Progress Note Subjective: no new complaints Narrative: Patient seen and examined sitting upright in bed in no apparent distress. Patient denies any pain at this time. Patient states he is voiding without difficulty and is still noticing some blood in the urine. Patient denies fever, chills, flank pain. Objective Initial Vital Signs Temp Pulse Resp BP Pulse Ox 99.4 F 82 20 123/75 100 01/29/18 17:55 01/29/18 17:55 01/29/18 17:55 01/29/18 17:55 01/29/18 17:55 - General physical appearance Present: well developed, no distress, no pain - Respiratory Present: normal expansion, normal respiratory effort - Abdomen Present: soft, non tender - Integumentary Present: no rash, no abnormal pigmentation - Musculoskeletal Present: normal posture - Psychiatric Present: oriented to time, oriented to person, oriented to place, speech is normal, memory intact - Labs 02/01/18 04:41 02/01/18 04:41 Consult Discharge Plan - Plan Referrals: NONE,PCP [Primary Care Provider] - <Michel Wilkes W - Last Filed: 02/02/18 11:59> Date of Encounter: 02/02/18 - Assessment and Plan (1) Hydronephrosis Current Visit: Yes Assessment and plan: Patient seen and examined independently. I am in agreement with the assessment and plan as outlined by our Urologic Surgery Department Physician Hotel Valet Attendant, Emerson. Discussed findings and risks benefits alternatives of ureteroscopic evaluation under anesthesia with possible biopsy, possible dilation and or possible bilateral ureteral stents with patient in detail. All questions answered. Patient agrees to proceed with surgery Qualifiers: Hydronephrosis type: unspecified Qualified Code(s): N13.30 - Unspecified hydronephrosis (2) Enlarged prostate Current Visit: Yes Status: Acute (3) Abnormal computed tomography of bladder Current Visit: Yes Status: Acute (4) KATERYNA (acute kidney injury) Current Visit: Yes Status: Acute (5) Hematuria Current Visit: Yes Status: Acute Qualifiers: Hematuria type: gross Qualified Code(s): R31.0 - Gross hematuria (6) Renal mass Current Visit: Yes Status: Acute Objective Initial Vital Signs Temp Pulse Resp BP Pulse Ox 99.4 F 82 20 123/75 100 01/29/18 17:55 01/29/18 17:55 01/29/18 17:55 01/29/18 17:55 01/29/18 17:55 - Labs 02/01/18 04:41 02/01/18 04:41
--- NOTE | 2018-02-02 16:10 | Internal Med Progress Note ---
Hospitalist Progress Note - Encounter Date of Encounter: 02/02/18 Time of Encounter: 15:38 - Subjective Interval History: IMr. Munoz is a 77 year old male presented to ER for abdominal pain. Past medical history is significant for diabetes, hypertension, lung cancer S/P right lobectomy, S/P appendectomy and partial bowel resection. Patient complaint the pain located on right upper quadrant and right lower quadrant started from yesterday. Patient also complaining chronic cough for about to 2 weeks with whitish to yellowish sputum. In the emergency room, Chest CT 01/29/18 19:33, Small bilateral pleural effusion and partial atelectasis of the lower lungs. Nonspecific mildly enlarged lymph nodes in the anterior mediastinum. Ascending thoracic aorta is mildly aneurysmal and measures 4.5 cm in diameter.Pulmonary emphysema. (1) B/L hydronephrosis, urology consult appreciated, OR this afternoon. Current Visit: Yes Status: Acute US showed 2.2 cm solid mildly echogenic nodule of the mid right kidney. Nature is indeterminate. No renal calculus identified. Moderate thickening of the wall of the urinary bladder suggesting bladder outlet obstruction. RECOMMENDATIONS: CT-guided biopsy of the right renal nodule could be performed for histologic diagnosis or six-month follow-up CT study without and with contrast. (2) KATERYNA improved with IVF (2) Right upper quadrant pain Current Visit: Yes Status: Acute CT abdominal shows cholelithiasis.normal LFTs, RUQ complete is ordered (3) Hypertension Current Visit: Yes Status: Acute Assessment and plan: Continue home medications Qualifiers: Hypertension type: essential hypertension Qualified Code(s): I10 - Essential (primary) hypertension (4) Diabetes mellitus type 2 Current Visit: Yes Status: Acute Assessment and plan: Cover Patient with sliding scale insulin. 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 EYES Clear sclerae, bilateral pupils are equal, reactive to light. EMOI. RESPIRATORY: No accessory muscle use, bilateral reduce of breath sounds to auscultation, no wheezing, no crackles/rales. CARDIOVASCULAR: Regular heart rate, normal S1 and S2, no murmurs GASTROINTESTINAL: bowel sounds present, soft, no tenderness. MUSCULOSKELETAL: Joints in normal range of motion, no clubbing, no edema, no cyanosis. Bilateral peripheral pulses 2+. NEUROLOGIC: CN II to XII are grossly intact, no focal neurological deficit. Skin. Bilateral lower extremity dry skin and erythema, chronic per patient - Time Spent with Patient Total time spent is greater than 50% in coordination of care (as documented) at patient's floor/unit and/or counseling patient: 25 - 35 minutes Plan of Care Discussed with: patient Internal Medicine: Result - Labs CBC & Chem 7: 02/01/18 04:41 02/01/18 04:41 Consult Discharge Plan - Plan Referrals: NONE,PCP [Primary Care Provider] -
[2018-02-02] MEDS ORDERED: *HR* Promethazine 25 MG/ML VIAL IVP PRN (17:08)
[2018-02-02] MEDS ORDERED: *HR* OxyCODONE Immed Rel 5 MG TABLET PO PRN ×2 (17:08→19:48)
[2018-02-02] MEDS ORDERED: *HR* HYDROmorphone (PF) 1 MG/ML SYRINGE IVP PRN (17:08)
[2018-02-02] MEDS ORDERED: *HR* FentaNYL (PF) 100 MCG/2 ML VIAL ONE (17:14)
[2018-02-02] MEDS ORDERED: Lidocaine -MPF 2% 2 ML VIAL ONE (17:14)
[2018-02-02] MEDS ORDERED: *HR* Propofol 200 MG/20 ML VIAL IVP ONE (17:14)
--- NOTE | 2018-02-02 17:16 | Anesthesia Evaluation PreOp ---
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 History: CVA, Syncope Other Medical History: Diabetes Type II, GERD, Other (4.3 cm AAA, anxiety/depression) Anesthesia History: No Prior Anesthetic Complications, Past Anesthesia Alcohol Use: none Drug use: none Medications and Allergies Albuterol Sulfate [Ventolin Hfa] 2 puff IH Q6H PRN 01/29/18 [History] Amlodipine Besylate 5 mg PO QAM 01/29/18 [History] Aspirin [Lo-Dose Aspirin EC] 81 mg PO DAILY 01/29/18 [History] Fluticasone/Vilanterol [Breo Ellipta 200-25 Mcg INH] 2 puff IH QAM 01/29/18 [History] Furosemide [Lasix] 20 mg PO QAM 01/29/18 [History] Insulin Glargine [Lantus] 3 unit SQ HS 01/29/18 [History] Ipratropium/Albuterol Sulfate [Iprat-Albut 0.5-3(2.5) mg/3 ml] 3 ml IH Q4H 01/29/18 [History] Metoprolol [Lopressor] 25 mg PO BID 01/29/18 [History] Mycophenolate Mofetil [Cellcept] 500 mg PO BID 01/29/18 [History] Oxybutynin Chloride [Ditropan Xl] 10 mg PO QAM 01/29/18 [History] Pravastatin Sodium [Pravachol] 40 mg PO DAILY 01/29/18 [History] Ranitidine HCl [Acid Tobacco Scrap Sifter] 150 mg PO BID 01/29/18 [History] Tramadol HCl [Ultram] 50 mg PO Q12H PRN 01/29/18 [History] Allergy/AdvReac Type Severity Reaction Status Date / Time guaifenesin [From Mucinex] Allergy Confusion Verified 08/27/15 14:05 - Meds/Allergy Pre-op Review Medications Reviewed: Yes Allergies Reviewed: Yes Beta Blockers on Current Med List: Yes If Beta Blockers taken, Date/Time (Last Dose taken): 02/02/2018 at 0820 Anesthesia Results - Labs 02/01/18 04:41 02/01/18 04:41 - Imaging EKG: report reviewed (01/29/2018 Sinus rhythm Atrial premature complex No nspecific intraventricular conduction delay Low voltage, precordial leads Abnormal R-wave progression, early transition) Additional studies: Chest X-Ray 01/29/18 18:24 IMPRESSION: Volume loss and increased opacity within the right lower hemithorax. Again, that represents some combination of atelectasis, airspace disease, and pleural fluid. Consider further evaluation with chest CT. Chest CT 01/29/18 19:33 IMPRESSION: 1. Small bilateral pleural effusion and partial atelectasis of the lower lungs. 2. Nonspecific mildly enlarged lymph nodes in the anterior mediastinum. 3. Ascending thoracic aorta is mildly aneurysmal and measures 4.5 cm in diameter. 4. Pulmonary emphysema Abdomen/Pelvis CT 01/29/18 18:25 IMPRESSION: Rectal fecal impaction. Cholelithiasis with multiple small calcified gallstones. Left greater than right bilateral hydronephrosis and hydroureter with no evidence of an obstructing renal calculus. The wall of the urinary bladder appears mildly irregularly thickened. Findings suggest outlet obstruction with hypertrophy of the bladder wall. Correlation with cystoscopy would be helpful. Right basilar parenchymal disease with volume loss. Right pleural disease appears loculated. Left lower lobe airspace disease may represent pneumonia and/or atelectasis. Small left pleural effusion. Calcific coronary artery disease. RECOMMENDATIONS: 4.3 cm AAA Anesthesia Exam Vital Signs/O2 Sat/Glucose, Most Recent Temp Pulse Resp BP Pulse Ox 97.9 F 112 18 158/56 97 02/02/18 11:39 02/02/18 11:39 02/02/18 13:42 02/02/18 11:39 02/02/18 13:42 Blood Glucose* 105 Height: 6'1''/1.85m Weight: 217 lbs/98.7 kg NPO (# of Hours): 8 Pain Scale: 0 Pain Scale Used: Numeric (1 - 10) - HEENT Pupil (Motor): EOMI Mallampati: II Teeth: Edentulous Oral Opening: Greater than 3 - PEST MANAGEMENT SUPERVISOR LOC: Oriented PEST MANAGEMENT SUPERVISOR Motor: Normal RUE, Normal LUE, Normal RLE, Normal LLE, Normal Face PEST MANAGEMENT SUPERVISOR Sensory: Normal: RUE, LUE, RLE, LLE, Face - Cardiac Rhythm: Regular Murmur: Systolic - Pulmonary Breath Sounds: bilateral Clear (decreased BS) Respiratory Effort: Symmetrical Anesthesia Assess/Plan ASA Score: 4 Level of consciousness: Cooperative, Oriented, Tranquil Anesthetic Plan: General Monitoring Plan: Standard Monitors Recovery Plan: PACU
[2018-02-02] MEDS ORDERED: Dexamethasone 4 MG/ML VIAL ONE (17:19)
[2018-02-02] MEDS ORDERED: Isovue-300 50 ML VIAL IVP ONE (17:23)
[2018-02-02] MEDS ORDERED: Ondansetron 4 MG/2 ML VIAL ONE (17:45)
[2018-02-02] MEDS ORDERED: *HR* PHENYLEPHRINE 1,000 MCG/10 ML SYRINGE IVP ONE (17:45)
[2018-02-02] MEDS ORDERED: *HR* Succinylcholine 200 MG/10 ML VIAL IVP ONE (17:47)
[2018-02-02] MEDS ORDERED: Lidocaine -MPF 4% 5 ML AMPUL ONE (18:07)
--- NOTE | 2018-02-02 18:40 | Operative Note ---
Date of procedure: 02/02/18 Pre-op diagnosis: Bilateral hydroureteronephrosis Post-op diagnosis: same (Same plus J hooking from large prostate and bilateral distal ureteral stricture) Procedure: Cystoscopy, bilateral retrograde ureteral pyelography with intraoperative interpretation of radiographic image by surgeon in real time to facilitate procedure, bilateral ureteral dilation, bilateral ureteroscopy, bilateral double-J stent placement Implants: Bilateral 6 x 26 double-J stent Complications: none Anesthesia: GETA Surgeon: Michel Wilkes Was there an trust operations assistant present: No Estimated blood loss (cc): 3 Specimen: none Condition: stable Disposition: PACU Procedure in Detail: 77-year-old gentleman who presented for symptoms of pneumonia. Workup revealed incidental findings of bilateral hydroureteronephrosis. Patient had mild deterioration in renal function. A Dickson catheter was placed the patient felt hematuria from back fully. Due to episodes of clot retention his Dickson was eventually removed. Follow-up ultrasound shows no improvement in bilateral hydronephrosis. As such the patient presented for evaluation under anesthesia. The patient was brought to the operating theater placed on table in supine position. Patient identified by name and is a general anesthetic. The patient placed in dorsal lithotomy prepped and draped in normal sterile fashion. Cystoscope was inserted into the urethral meatus and advanced with the bladder under direct visualization. There were significant adhesions of the foreskin to the glans penis. There were no mucosal abdomen bowel these of the urethra or bladder. The bladder was heavily trabeculated. There is mild nodularity noted UOs consistent with advanced BPH. There are no lesions appreciated worrisome for tumor. At this point in open-ended catheter was placed the tip of each ureteral orifice and with gentle injection of contrast retrograde pyelograms were performed. Intraoperative interpretation of radiographic images in real time revealed the level obstruction bilaterally being at the distal ureter within 1 cm of the ureteral orifice. There is significant J hooking of the ureters. There was proximal hydroureteronephrosis. No additional filling defects or strictures were appreciated. Based on the following findings diagnostic ureteroscopy was indicated. At this point under fluoroscopic guidance a Glidewire was advanced into the renal pelvis ease bilaterally. This was quite difficult giving the significant tortuosity and hydronephrosis of the ureters bilaterally. With manipulation eventually both wires were advanced into the renal pelves. Alongside the Glidewire a rigid ureteroscopy was performed bilaterally. This revealed no tumors or stone. There were very short areas of narrowing suspicious for stricture at both distal ureters. Additionally J hooking was felt also contribute to some obstruction. The cystoscope was removed leaving the Glidewire in place. Over the Glidewire ureteral dilation was performed at 14-Greek using a ureteral access sheath. Once this was done 6 x 26 double-J stent were advanced under fluoroscopic guidance. Once the stents were felt to be in good position the Glidewire were removed. Proximal distal curls of the stent were in good position fluoroscopically. This was felt to be next result. Thus this ended the operative procedure.
--- NOTE | 2018-02-02 19:12 | Anesthesia Evaluation Post Op ---
Date of Encounter: 02/02/18 Time of Encounter: 19:11 - Vital Signs Vital Signs: Vital Signs/O2 Sat, Most Current Temp Pulse Resp BP Pulse Ox 97.8 F 86 16 167/92 97 02/02/18 18:41 02/02/18 18:51 02/02/18 18:51 02/02/18 18:51 02/02/18 18:51 - Lungs Lungs: Clear Ascult./Percussion - Airway Airway: Non-obstructed - Cardiovascular Regular Rate - Mental Status Mental Status: Alert & Oriented, Answers Appropriately - Pain Pain Scale: 0 Pain Scale used: Numeric (1 - 10) - Nausea Vomiting Nausea Vomiting: Not Present - Hydration Hydration: NPO, Has not voided - Discharge PostOp Status: Transfer Patient to floor
[2018-02-02] MEDS ORDERED: D5% in Water 1,000 ML IVC PRN (19:48)
[2018-02-02] MEDS ORDERED: 0.9 % Sodium Chloride 1,000 ML IVC SCH (19:48)
[2018-02-02] MEDS ORDERED: Naloxone 0.4 MG/ML INJ IVP PRN (19:48)
[2018-02-02] MEDS ORDERED: *HR* Dextrose 50 % in Water (Syg) 50 ML SYRINGE IVP PRN (19:48)
[2018-02-02] MEDS ORDERED: *HR* HYDROcodone/Acet 5/325 mg TABLET PO PRN (19:48)
[2018-02-02] MEDS ORDERED: Dextrose Gel 15 GM/37.5 ML TUBE PO PRN ×2 (19:48)
[2018-02-02] MEDS ORDERED: Acetaminophen 325 MG TABLET PO PRN (19:48)
[2018-02-03] MEDS: *HR* Heparin 5,000 UNIT/ML VIAL SQ SCH ×2 (05:28→17:52)
[2018-02-03 07:08] LABS: Basophils % 0.4 %; Eosinophils % 0.1 %; Hematocrit 29.4 % (37.5-50.1); Hemoglobin 8.7 g/dL (12.9-16.9); Immature Granulocytes % 1.1 % (0-4); Lymphocytes # 0.8 K/mcL (0.6-4.6); Lymphocytes % 10.3 %; Mean Corpuscular HGB Conc 29.6 g/dL (31.6-35.5); Mean Corpuscular Hemoglobin 28.2 pg (28.0-33.3); Mean Corpuscular Volume 95.1 fL (83.0-100.0); Mean Platelet Volume 9.5 fL (9.4-12.4); Monocytes # 0.4 K/mcL (0.0-1.3); Monocytes % 5.4 %; Neutrophils # 6.1 K/mcL (1.6-8.9); Platelet Count 366 K/mcL (140-400); Red Blood Count 3.09 M/mcL (4.19-5.50); Segmented Neutrophils % 82.7 %
[2018-02-03 07:24] LABS: Alanine Aminotransferase 6 Units/L (7-52); Albumin 3.2 g/dL (3.5-5.7); Albumin/Globulin Ratio 0.9 (1.1-2.2); Alkaline Phosphatase 57 Units/L (34-104); Aspartate Amino Transferase 17 Units/L (13-39); BUN/Creatinine Ratio 18 (6-26); Bilirubin,Direct 0.2 mg/dL (0.0-0.2); Bilirubin,Total 0.2 mg/dL (0.3-1.0); Blood Urea Nitrogen 21 mg/dL (8-23); Calcium 8.3 mg/dL (8.6-10.3); Carbon Dioxide 26 mEq/L (23-29); Chloride 106 mEq/L (98-107); Globulin 3.4 g/dL (2.4-3.5); Glucose 136 mg/dL (70-105); Osmolality,Calculated 293 (280-300); Potassium 4.8 mEq/L (3.5-5.1); Sodium 139 mEq/L (136-145); Total Protein 6.6 g/dL (6.4-8.9); eGFR For Non-African Americans > 60 (> 60)
[2018-02-03] MEDS: Insulin LISPRO 300 UNITS/3 ML VIAL SQ SCH ×4 (07:41→20:31)
[2018-02-03] MEDS: Ipratropium/Albuterol Neb 3 ML IH PRN ×3 (07:59→22:46)
[2018-02-03] MEDS: Budesonide/Formoterol 160/4.5 1 PUFF INH IH SCH ×2 (07:59→22:46)
[2018-02-03] MEDS: Aspirin Enteric Coated 81 MG Tablet PO SCH (09:29)
[2018-02-03] MEDS: Furosemide 20 MG TABLET PO SCH (09:29)
[2018-02-03] MEDS: Famotidine 20 MG TABLET PO SCH ×2 (09:29→20:30)
[2018-02-03] MEDS: amLODIPine 5 MG TABLET PO SCH (09:30)
--- NOTE | 2018-02-03 11:08 | Urology Progress Note ---
<Prabha Norman N - Last Filed: 02/03/18 11:06> Date of Encounter: 02/03/18 Time of Encounter: 10:30 - Assessment and Plan (1) KATERYNA (acute kidney injury) Current Visit: Yes Status: Acute (2) Enlarged prostate Current Visit: Yes Status: Acute (3) Hematuria Current Visit: Yes Status: Acute Qualifiers: Hematuria type: gross Qualified Code(s): R31.0 - Gross hematuria (4) Hydronephrosis Current Visit: Yes Status: Acute Assessment and plan: Patient is a 77-year-old male who presents one day postoperatively from cystoscopy, bilateral retrograde ureteral pyelography with intraoperative interpretation of radiographic image by surgeon in real time to facilitate procedure, bilateral ureteral dilation, bilateral ureteroscopy, bilateral double-J stent placement. Vital signs are stable and afebrile. Reviewed intraoperative findings with patient. Discussed postoperative expectations with ureteral stents. Patient instructed to follow-up with [facility] in 4 weeks for cystoscopy and ureteral stent removal. Qualifiers: Hydronephrosis type: unspecified Qualified Code(s): N13.30 - Unspecified hydronephrosis Progress Note Subjective: no new complaints, feels better Narrative: POD #1. Patient seen and examined sitting upright in bed in no apparent distress. Pain is well-controlled. Patient is voiding without difficulty. Patient denies nausea or vomiting. Objective Initial Vital Signs Temp Pulse Resp BP Pulse Ox 99.4 F 82 20 123/75 100 01/29/18 17:55 01/29/18 17:55 01/29/18 17:55 01/29/18 17:55 01/29/18 17:55 - General physical appearance Present: well developed, no distress, no pain - Respiratory Present: normal expansion - Abdomen Present: soft, non tender - Integumentary Present: no rash, no abnormal pigmentation - Musculoskeletal Present: normal posture - Psychiatric Present: oriented to time, oriented to person, oriented to place, speech is normal, memory intact - Labs 02/03/18 06:38 02/03/18 06:38 Diabetes panel 02/03/18 Range/Units 06:38 Sodium 139 (136-145) mEq/L Potassium 4.8 (3.5-5.1) mEq/L Chloride 106 (98-107) mEq/L Carbon Dioxide 26 (23-29) mEq/L BUN 21 (8-23) mg/dL Creatinine 1.17 (0.70-1.30) mg/dL Glucose 136 H (70-105) mg/dL Calcium 8.3 L (8.6-10.3) mg/dL AST 17 (13-39) Units/L ALT 6 L (7-52) Units/L Alkaline Phosphatase 57 (34-104) Units/L Albumin 3.2 L (3.5-5.7) g/dL Calcium panel 02/03/18 Range/Units 06:38 Calcium 8.3 L (8.6-10.3) mg/dL Albumin 3.2 L (3.5-5.7) g/dL Pituitary panel 02/03/18 Range/Units 06:38 Sodium 139 (136-145) mEq/L Potassium 4.8 (3.5-5.1) mEq/L Chloride 106 (98-107) mEq/L Carbon Dioxide 26 (23-29) mEq/L BUN 21 (8-23) mg/dL Creatinine 1.17 (0.70-1.30) mg/dL Glucose 136 H (70-105) mg/dL Calcium 8.3 L (8.6-10.3) mg/dL Adrenal panel 02/03/18 Range/Units 06:38 Sodium 139 (136-145) mEq/L Potassium 4.8 (3.5-5.1) mEq/L Chloride 106 (98-107) mEq/L Carbon Dioxide 26 (23-29) mEq/L BUN 21 (8-23) mg/dL Creatinine 1.17 (0.70-1.30) mg/dL Glucose 136 H (70-105) mg/dL Calcium 8.3 L (8.6-10.3) mg/dL Total Bilirubin 0.2 L (0.3-1.0) mg/dL AST 17 (13-39) Units/L ALT 6 L (7-52) Units/L Alkaline Phosphatase 57 (34-104) Units/L Albumin 3.2 L (3.5-5.7) g/dL Consult Discharge Plan - Plan Referrals: Michel Wilkes [Partnered Physician] - Troy Bonilla DO [Non-Partnered Physician] - <Michel Wilkes - Last Filed: 02/03/18 17:05> Date of Encounter: 02/03/18 - Assessment and Plan (1) Hydronephrosis Current Visit: Yes Qualifiers: Qualified Code(s): N13.1 - Hydronephrosis with ureteral stricture, not elsewhere classified (2) Enlarged prostate Current Visit: Yes Status: Acute (3) Abnormal computed tomography of bladder Current Visit: Yes Status: Acute (4) KATERYNA (acute kidney injury) Current Visit: Yes Status: Resolved (5) Hematuria Current Visit: Yes Status: Acute Qualifiers: Qualified Code(s): R31.0 - Gross hematuria (6) Renal mass Current Visit: Yes Status: Acute Objective Initial Vital Signs Temp Pulse Resp BP Pulse Ox 99.4 F 82 20 123/75 100 01/29/18 17:55 01/29/18 17:55 01/29/18 17:55 01/29/18 17:55 01/29/18 17:55 - Labs 02/03/18 06:38 02/03/18 06:38 Diabetes panel 02/03/18 Range/Units 06:38 Sodium 139 (136-145) mEq/L Potassium 4.8 (3.5-5.1) mEq/L Chloride 106 (98-107) mEq/L Carbon Dioxide 26 (23-29) mEq/L BUN 21 (8-23) mg/dL Creatinine 1.17 (0.70-1.30) mg/dL Glucose 136 H (70-105) mg/dL Calcium 8.3 L (8.6-10.3) mg/dL AST 17 (13-39) Units/L ALT 6 L (7-52) Units/L Alkaline Phosphatase 57 (34-104) Units/L Albumin 3.2 L (3.5-5.7) g/dL Calcium panel 02/03/18 Range/Units 06:38 Calcium 8.3 L (8.6-10.3) mg/dL Albumin 3.2 L (3.5-5.7) g/dL Pituitary panel 02/03/18 Range/Units 06:38 Sodium 139 (136-145) mEq/L Potassium 4.8 (3.5-5.1) mEq/L Chloride 106 (98-107) mEq/L Carbon Dioxide 26 (23-29) mEq/L BUN 21 (8-23) mg/dL Creatinine 1.17 (0.70-1.30) mg/dL Glucose 136 H (70-105) mg/dL Calcium 8.3 L (8.6-10.3) mg/dL Adrenal panel 02/03/18 Range/Units 06:38 Sodium 139 (136-145) mEq/L Potassium 4.8 (3.5-5.1) mEq/L Chloride 106 (98-107) mEq/L Carbon Dioxide 26 (23-29) mEq/L BUN 21 (8-23) mg/dL Creatinine 1.17 (0.70-1.30) mg/dL Glucose 136 H (70-105) mg/dL Calcium 8.3 L (8.6-10.3) mg/dL Total Bilirubin 0.2 L (0.3-1.0) mg/dL AST 17 (13-39) Units/L ALT 6 L (7-52) Units/L Alkaline Phosphatase 57 (34-104) Units/L Albumin 3.2 L (3.5-5.7) g/dL
--- NOTE | 2018-02-03 16:58 | Internal Med Progress Note ---
Hospitalist Progress Note - Encounter Date of Encounter: 02/03/18 Time of Encounter: 08:00 - Subjective Interval History: patient was seen and at bedside. has no complaints reports that his abdominal pain has resolved, denies difficulty breathing, denies N/V/D. - Exam Vitals: Temp Pulse Resp BP Pulse Ox 98.3 F 69 15 139/72 98 02/03/18 10:29 02/03/18 10:29 02/03/18 10:29 02/03/18 10:29 02/03/18 10:29 Exam: CONSTITUTIONAL: patient appears as an age appropriate male in no acute distress. EYES Clear sclerae, bilateral pupils are equal, reactive to light. EMOI. RESPIRATORY: No accessory muscle use, bilateral reduce of breath sounds to auscultation, no wheezing, no crackles/rales. CARDIOVASCULAR: Regular heart rate, normal S1 and S2, no murmurs GASTROINTESTINAL: bowel sounds present, soft, no tenderness. murphysign negative MUSCULOSKELETAL: Joints in normal range of motion, no clubbing, no edema, no cyanosis. NEUROLOGIC: Alert, oriented to self adn place and to season no focal neurological deficit. Skin. Bilateral lower extremity dry skin and erythema, chronic per patient - Assessment and Plan (1) Hydronephrosis Current Visit: Yes Status: Acute Assessment and Plan: Bilateral hydronephrosis S/P bilateral ureteral dilation, bilateral u reteroscopy, bilateral double-J stent placement. urology recommendations appreciated Patient instructed to follow-up with [facility] in 4 weeks for cystoscopy and ureteral stent removal. Ct A/P IMPRESSION: Rectal fecal impaction. Cholelithiasis with multiple small calcified gallstones. Left greater than right bilateral hydronephrosis and hydroureter with no evidence of an obstructing renal calculus. The wall of the urinary bladder appears mildly irregularly thickened. Findings suggest outlet obstruction with hypertrophy of the bladder wall. Correlation with cystoscopy would be helpful. Right basilar parenchymal disease with volume loss. Right pleural disease appears loculated. Left lower lobe airspace disease may represent pneumonia and/or atelectasis. Small left pleural effusion. Calcific coronary artery disease. RECOMMENDATIONS: 4.3 cm AAA Recommend vascular consultation and annual follow-up. (2) Right upper quadrant pain Current Visit: Yes Status: Acute Assessment and Plan: Etiology is undetermined. CT abdominal shows cholelithiasis. LFTS WNL RUQ US performed ? acute cholecystitis- HIDA scan to be performed on 02/03 no- fever or leukocytosis - off IV ABx (3) Hypertension Current Visit: Yes Status: Acute Assessment and Plan: Continue amlodipine and metoprolol and increase as per blood pressure (4) KATERYNA (acute kidney injury) Current Visit: Yes Status: Resolved Assessment and Plan: Cr 1.37, previous 1.09 in 2016. Resolved with IV fluids (5) Abdominal aortic aneurysm Current Visit: Yes Status: Acute Assessment and Plan: CT abdomen shows AAA, It was 3.8 cm, and is now 4.3 cm after 4 years. ED physician spoke to ED physician who stated that this can be followed up on an outpatient basis and that he did not need to be consulted on the floor for. (6) Type 2 diabetes mellitus Current Visit: Yes Status: Chronic Assessment and Plan: continue sliding scale and adjust as per finger sticks (7) COPD (chronic obstructive pulmonary disease) Current Visit: Yes Status: Acute Assessment and Plan: on 2.5 L home oxygen continue home medications CT chest: 1. Small bilateral pleural effusion and partial atelectasis of the lower lungs. 2. Nonspecific mildly enlarged lymph nodes in the anterior mediastinum. 3. Ascending thoracic aorta is mildly aneurysmal and measures 4.5 cm in diameter. 4. Pulmonary emphysema (8) Bullous disorder, unspecified Current Visit: Yes Status: Acute Assessment and Plan: Chronic on mycophenolate mofetil (9) DVT prophylaxis Current Visit: Yes Status: Acute Assessment and Plan: heparin SC - Time Spent with Patient Total time spent is greater than 50% in coordination of care (as documented) at patient's floor/unit and/or counseling patient: Internal Medicine: Result - Labs CBC & Chem 7: 02/03/18 06:38 02/03/18 06:38 Labs: Short CBC 02/03/18 Range/Units 06:38 WBC 7.4 (4.3-11.1) K/mcL Hgb 8.7 L (12.9-16.9) g/dL Hct 29.4 L (37.5-50.1) % Plt Count 366 (140-400) K/mcL Neutrophils # 6.1 (1.6-8.9) K/mcL BMP 02/03/18 06:38 Sodium 139 Potassium 4.8 Chloride 106 Carbon Dioxide 26 BUN 21 Creatinine 1.17 Glucose 136 H Calcium 8.3 L Liver Function 02/03/18 Range/Units 06:38 Total Bilirubin 0.2 L (0.3-1.0) mg/dL Direct Bilirubin 0.2 (0.0-0.2) mg/dL AST 17 (13-39) Units/L ALT 6 L (7-52) Units/L Alkaline Phosphatase 57 (34-104) Units/L Albumin 3.2 L (3.5-5.7) g/dL - Impressions Impressions Retrograde Pyelogram 02/02/18 18:05 IMPRESSION: Intraprocedural fluoroscopic spot images as above. See separate procedure report for more information. D/ / Anoop Noriega / Anoop Noriega Interpreting Provider: Anoop Noriega Liver Scan Nuclear Medicine 02/03/18 12:21 IMPRESSION: *No convincing scintigraphic evidence of acute or chronic cholecystitis. *Mild decreased gallbladder ejection fraction reliability of which may be false positive result given use of Ensure and additionally acute illness and certain medications can result in false positives in the inpatient setting. Alternately given presence of gallstones decreased ejection fraction may represent cholelithiasis with atypical symptoms. D/ / Dinora Landry MD / Dinora Landry MD Interpreting Provider: Dinora Landry MD Consult Discharge Plan - Plan Referrals: Michel Wilkes [Partnered Physician] - Troy Bonilla DO [Non-Partnered Physician] - (1) Hydronephrosis Qualifiers: Hydronephrosis type: with other ureteral stricture Qualified Code(s): N13.1 - Hydronephrosis with ureteral stricture, not elsewhere classified (3) Hypertension Qualifiers: Hypertension type: essential hypertension Qualified Code(s): I10 - Essential (primary) hypertension (5) Abdominal aortic aneurysm Qualifiers: Presence of rupture: without rupture Qualified Code(s): I71.4 - Abdominal aortic aneurysm, without rupture (6) Type 2 diabetes mellitus Qualifiers: Diabetes mellitus termite control representative insulin use: with termite control representative use Diabetes mellitus complication status: without complication Qualified Code(s): E11.9 - Type 2 diabetes mellitus without complications; Z79.4 - retirement (current) use of insulin
[2018-02-04] MEDS: Ipratropium/Albuterol Neb 3 ML IH PRN ×2 (04:18→11:23)
[2018-02-04] MEDS: *HR* Heparin 5,000 UNIT/ML VIAL SQ SCH (06:23)
[2018-02-04] MEDS: Budesonide/Formoterol 160/4.5 1 PUFF INH IH SCH (07:40)
[2018-02-04] MEDS: Insulin LISPRO 300 UNITS/3 ML VIAL SQ SCH ×2 (07:56→11:52)
[2018-02-04] MEDS: Furosemide 20 MG TABLET PO SCH (09:40)
[2018-02-04] MEDS: Famotidine 20 MG TABLET PO SCH (09:41)
[2018-02-04] MEDS: Aspirin Enteric Coated 81 MG Tablet PO SCH (09:41)
[2018-02-04] MEDS: amLODIPine 5 MG TABLET PO SCH (09:41)
--- NOTE | 2018-02-04 10:30 | Discharge Summary ---
- NOTES TO OUTPATIENT PROVIDER Notes to Outpatient Provider: follow up with urology in 4 weeks. follow up with GI as OP. follow BMP for renal functions. follow with vascular surgery as OP for AAA. Orders not resulted at time of discharge: Pending orders 01/30/18 10:12 Sputum Culture [Culture,Sputum with Gram Stain] [] Stat Date of Encounter: 02/04/18 Time of Encounter: 10:25 - Discharge Diagnosis (1) Hydronephrosis Priority: Primary Status: Acute Qualifiers: Hydronephrosis type: with other ureteral stricture Qualified Code(s): N13.1 - Hydronephrosis with ureteral stricture, not elsewhere classified (2) Right upper quadrant pain Priority: Secondary Status: Acute (3) Hypertension Priority: Secondary Status: Acute Qualifiers: Hypertension type: essential hypertension Qualified Code(s): I10 - Essential (primary) hypertension (4) KATERYNA (acute kidney injury) Priority: Secondary Status: Resolved (5) Abdominal aortic aneurysm Priority: Secondary Status: Acute Qualifiers: Presence of rupture: without rupture Qualified Code(s): I71.4 - Abdominal aortic aneurysm, without rupture (6) Type 2 diabetes mellitus Priority: Secondary Status: Chronic Qualifiers: Diabetes mellitus prison 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 Diabetes mellitus complication status: without complication Qualified Code(s): E11.9 - Type 2 diabetes mellitus without complications; Z79.4 - watermelon inspector (current) use of insulin (7) COPD (chronic obstructive pulmonary disease) Priority: Secondary Status: Acute Qualifiers: COPD type: emphysema Emphysema type: unspecified Qualified Code(s): J43.9 - Emphysema, unspecified (8) Bullous disorder, unspecified Priority: Secondary Status: Acute (9) DVT prophylaxis Priority: Secondary Status: Acute (10) Nodule of kidney Priority: Secondary Status: Acute (11) Enlarged prostate Priority: Secondary Status: Acute (12) Fecal impaction in rectum Priority: Secondary Status: Acute Hospital course: "Mr. Munoz is a 77 year old male presented to ER for abdominal pain. Past medical history is significant for diabetes, hypertension, lung cancer S/P right lobectomy, S/P appendectomy and partial bowel resection. Patient complaint the pain located on right upper quadrant and right lower quadrant started from yesterday. Patient denies fever, chills, nausea, vomiting. Patient can pass gas and had bowel movement yesterday evening. Patient also complaining chronic cough for about to 2 weeks with whitish to yellowish sputum. Patient denies shortness of breath, chest pain, runny nose, or sore throat. In the emergency room, CT abdominal has been done, no acute finding, but suspect pneumonia. Patient has recent pneumonia 3 weeks ago, for which he was treated in [facility]. Patient denies worsening cough or shortness of breath. Patient has bilateral lower extremity skin redness, warmth, tenderness for several weeks." patient presented with above presentation. in the ED CT A/P was performed which showed b/l hydronephrisis- urology was consulted and he is S/P bilateral ureteral dilation, bilateral ureteroscopy, bilateral double-J stent placement. Patient instructed to follow- up with [facility] in 4 weeks for cystoscopy and ureteral stent removal. retroperitnoneal US performed and 2.2 cm solid mildly echogenic nodule of the mid right kidney. CT-guided biopsy of the right renal nodule could be performed for histologic diagnosis or six-month follow-up CT study without and with contrast. urology on board. i discussed with Ceci and he to follow up as OP. Ascending thoracic aorta is mildly aneurysmal and measures 4.[address] abdomen shows AAA, It was 3.8 cm, and is now 4.3 cm after 4 years. ED physician spoke to ED physician who stated that this can be followed up on an outpatient basis and that he did not need to be consulted on the floor for. nursing staff to provide appointment for the patient to follow up as OP. RUQ abdominal pain resolved, RUQ US performed on admission and it was recommended to perform HIDA scan- HIDA scan was performed on 02/03- results below- for him to follow up as OP. LFTS WNL, no leukocytosis. he was continued on his home COPD medication and BP regimen. bowel regimen added to his regimen with relief of constipation. my first encounter with the patietn was on 02/03. he was cleared for discharge by urology team. after reviewing my colleagues note as per documentation he was stable for discharge pending urology clearance and RUQ HIDA scan. he had mildly elevated creatinine which resolved once obstruction was relieved and with IV hydration. nursing staff discussed to provide follow up appointments. HIDA scan 02/03-*No convincing scintigraphic evidence of acute or chronic cholecystitis. *Mild decreased gallbladder ejection fraction reliability of which may be false positive result given use of Ensure and additionally acute illness and certain medications can result in false positives in the inpatient setting. Alternately given presence of gallstones decreased ejection fraction may represent cholelithiasis with atypical symptoms. RUQ US: IMPRESSION: Cholelithiasis. Mild gallbladder wall thickening is also demonstrated, for which early or mild cholecystitis cannot be excluded. If further evaluation is warranted, consider HIDA scan. Right renal pelviectasis. C/T A/P Ct A/P IMPRESSION: Rectal fecal impaction. Cholelithiasis with multiple small calcified gallstones. Left greater than right bilateral hydronephrosis and hydroureter with no evidence of an obstructing renal calculus. The wall of the urinary bladder appears mildly irregularly thickened. Findings suggest outlet obstruction with hypertrophy of the bladder wall. Correlation with cystoscopy would be helpful. Right basilar parenchymal disease with volume loss. Right pleural disease appears loculated. Left lower lobe airspace disease may represent pneumonia and/or atelectasis. Small left pleural effusion. Calcific coronary artery disease. RECOMMENDATIONS: 4.3 cm AAA Recommend vascular consultation and annual follow-up. CT head: IMPRESSION: No acute intracranial abnormality. Generalized atrophy and [id number] chronic small vessel ischemic white matter disease. CT chest: IMPRESSION: 1. Small bilateral pleural effusion and partial atelectasis of the lower lungs. 2. Nonspecific mildly enlarged lymph nodes in the anterior mediastinum. 3. Ascending thoracic aorta is mildly aneurysmal and measures 4.5 cm in diameter. 4. Pulmonary emphysema Discharge discussed with: patient, nurse, social work, case management, networks software consultant - Time Spent with Patient Total time spent providing and/or coordinating discharge services: Greater than 30 minutes (40) - Discharge Medications Prescriptions: Tamsulosin [Flomax] 0.4 mg PO DAILY #30 capsule Tramadol HCl [Ultram] 50 mg PO Q12H PRN 1 Days #2 tablet PRN Reason: Pain Home Medications: Albuterol Sulfate [Ventolin Hfa] 2 puff IH Q6H PRN 01/29/18 [History] Amlodipine Besylate 5 mg PO QAM 01/29/18 [History] Aspirin [Lo-Dose Aspirin EC] 81 mg PO DAILY 01/29/18 [History] Fluticasone/Vilanterol [Breo Ellipta 200-25 Mcg INH] 2 puff IH QAM 01/29/18 [History] Furosemide [Lasix] 20 mg PO QAM 01/29/18 [History] Insulin Glargine [Lantus] 3 unit SQ HS 01/29/18 [History] Ipratropium/Albuterol Sulfate [Iprat-Albut 0.5-3(2.5) mg/3 ml] 3 ml IH Q4H 01/29/18 [History] Metoprolol [Lopressor] 25 mg PO BID 01/29/18 [History] Mycophenolate Mofetil [Cellcept] 500 mg PO BID 01/29/18 [History] Oxybutynin Chloride [Ditropan Xl] 10 mg PO QAM 01/29/18 [History] Pravastatin Sodium [Pravachol] 40 mg PO DAILY 01/29/18 [History] Ranitidine HCl [Acid Reference And Instruction Librarian] 150 mg PO BID 01/29/18 [History] Tamsulosin [Flomax] 0.4 mg PO DAILY #30 capsule 02/04/18 [Rx] Tramadol HCl [Ultram] 50 mg PO Q12H PRN 1 Days #2 tablet 02/04/18 [Rx] Allergies/Adverse Reactions: Allergy/AdvReac Type Severity Reaction Status Date / Time guaifenesin [From Mucinex] Allergy Confusion Verified 08/27/15 14:05 Date of admission: 01/30/18 14:54 Primary care physician: PCP NONE Consults: 01/30/18 09:33 Consult to Physical Therapy [CONS] Routine Comment: Evaluate, develop and implement POC Reason for Consult: Weakness Does patient have active BEDREST order?: No Is patient medically & hemodynamically stable?: Yes 01/30/18 10:09 Consult to Urology [CONS] Routine Consulting Provider: [facility] Reason for Consult: b/l hydronephrosis Call Completed: Yes 02/03/18 08:12 OT [Consult to Occupational Therapy] [CONS] Routine Comment: Evaluate, develop and implement POC Reason for Consult: needs at discharge Does patient have active BEDREST order?: No Is patient medically & hemodynamically stable?: Yes - Constitutional Vitals: Temp Pulse Resp BP Pulse Ox 98.5 F 82 16 158/75 97 02/04/18 06:57 02/04/18 06:57 02/04/18 07:39 02/04/18 06:57 02/04/18 07:39 Exam: CONSTITUTIONAL: patient appears as an age appropriate male in no acute distress. EYES Clear sclerae, bilateral pupils are equal, reactive to light. EMOI. RESPIRATORY: No accessory muscle use, bilateral reduce of breath sounds to auscultation, no wheezing, no crackles/rales. CARDIOVASCULAR: Regular heart rate, normal S1 and S2, no murmurs GASTROINTESTINAL: bowel sounds present, soft, no tenderness. murphysign negative MUSCULOSKELETAL: Joints in normal range of motion, no clubbing, no edema, no cyanosis. NEUROLOGIC: Alert, oriented to self and place and to season no focal neurological deficit. Skin. Bilateral lower extremity dry skin and erythema, chronic per patient - Patient Status Disposition: Transfer SNF Condition: Good Functional capacity at discharge: uses cane/walker Overall status at discharge: patient is progressing back to baseline - Discharge Instructions Follow Up With: Michel Wilkes [Partnered Physician] - Troy Bonilla DO [Non-Partnered Physician] - - Diet and Activity Activity: as per physical therapy Diet: advance to your usual diet, diabetic diet
--- NOTE | 2018-02-04 14:43 | Physician Discharge Referral ---
[facility] Referral Info Provider in Charge after Transfer: PCP Institutional Level of Care: Skilled - Diagnosis (1) Hydronephrosis Priority: Primary Status: Acute (2) Right upper quadrant pain Priority: Secondary Status: Acute (3) Hypertension Priority: Secondary Status: Acute (4) KATERYNA (acute kidney injury) Priority: Secondary Status: Resolved (5) Abdominal aortic aneurysm Priority: Secondary Status: Acute (6) Type 2 diabetes mellitus Priority: Secondary Status: Chronic (7) COPD (chronic obstructive pulmonary disease) Priority: Secondary Status: Acute (8) Bullous disorder, unspecified Priority: Secondary Status: Acute (9) DVT prophylaxis Priority: Secondary Status: Acute (10) Nodule of kidney Status: Acute (11) Enlarged prostate Status: Acute (12) Fecal impaction in rectum Status: Acute - Transfer Medications Prescriptions: Tamsulosin [Flomax] 0.4 mg PO DAILY #30 capsule Tramadol HCl [Ultram] 50 mg PO Q12H PRN 1 Days #2 tablet PRN Reason: Pain Home Medications: Albuterol Sulfate [Ventolin Hfa] 2 puff IH Q6H PRN 01/29/18 [History] Amlodipine Besylate 5 mg PO QAM 01/29/18 [History] Aspirin [Lo-Dose Aspirin EC] 81 mg PO DAILY 01/29/18 [History] Fluticasone/Vilanterol [Breo Ellipta 200-25 Mcg INH] 2 puff IH QAM 01/29/18 [History] Furosemide [Lasix] 20 mg PO QAM 01/29/18 [History] Insulin Glargine [Lantus] 3 unit SQ HS 01/29/18 [History] Ipratropium/Albuterol Sulfate [Iprat-Albut 0.5-3(2.5) mg/3 ml] 3 ml IH Q4H 01/29/18 [History] Metoprolol [Lopressor] 25 mg PO BID 01/29/18 [History] Mycophenolate Mofetil [Cellcept] 500 mg PO BID 01/29/18 [History] Oxybutynin Chloride [Ditropan Xl] 10 mg PO QAM 01/29/18 [History] Pravastatin Sodium [Pravachol] 40 mg PO DAILY 01/29/18 [History] Ranitidine HCl [Acid Underwear Finisher] 150 mg PO BID 01/29/18 [History] Tamsulosin [Flomax] 0.4 mg PO DAILY #30 capsule 02/04/18 [Rx] Tramadol HCl [Ultram] 50 mg PO Q12H PRN 1 Days #2 tablet 02/04/18 [Rx] Allergies/Adverse Reactions: Allergy/AdvReac Type Severity Reaction Status Date / Time guaifenesin [From Mucinex] Allergy Confusion Verified 08/27/15 14:05 - Respiratory Orders Oxygen / L per min Smoking Cessation: Smoking cessation has been advised. For more information, call the [place] Tobacco Quit Line at 6-812-UFMD-NOW. - Rehabiliation Orders Rehab Potential: Good Rehab Orders: ROM Exercises - Treatments Skin tear care topically daily PRN per policy, May check for fecal impaction rectally daily PRN, Fleet enema rectally every other day PRN cleansing purposes - Diet Orders No Added Salt (LUIS) (diabetic) CERTIFICATION: I certify that the transfer of the above named patient to an Extended Care Facility is necessary for the continuing treatment of the diagnosis listed. The above information is true and accurate reflection of patient's current condition. Confidential - Redisclosure prohibited without a patient's written consent.
[2018-02-04 15:40] VITALS: BP 145/67
== END 2018-02-04 16:36 | DRG 659 ==
LOC: 3ANU 17:52 → EMEROOARM 17:52 → 3ANU 01-30 00:26 → SUATTDRO 01-30 14:54
PROVIDERS: ADMIT Pediatrics; ATTEND Hospitalist